=== PATIENT | male | born 1960 | race Two or more races ===

== ENCOUNTER 2019-09-11 21:54 | Inpatient (IN) | payer MEDICARE, MEDICAID ==
[~2019-09-11] VITALS: Ht 165.1 cm; Wt 62.6 kg
[2019-09-11] MEDS ORDERED: NITROGLYCERIN 50MG PREMIX 250 ML IV ONE (22:16)
[2019-09-11] MEDS ORDERED: AZITHROMYCIN 500 MG in DEXT 5% WATER 250 ML IV SCH (22:45)
[2019-09-11] MEDS ORDERED: CEFTRIAXONE 1 G PREMIX 50 ML IV ONE (22:45)
[2019-09-11 23:27] LABS: HEMATOCRIT. 38.6 % (42.0-52.0); HEMOGLOBIN. 12.7 g/dL (14.0-18.0); LYMPHOCYTES % 21.2 % (20.0-50.0); MEAN CORPUSCULAR VOLUME 88.3 fL (80.0-94.0); MEAN PLATELET VOLUME 8.7 fl (7.4-10.4); MONOCYTES % 6.4 % (2.0-8.0); NEUTROPHILS % 71.4 % (40.0-76.0); PLATELET 438 x1000/uL (130-400); RED BLOOD CELL COUNT 4.36 mill/uL (4.7-6.1); RED CELL DISTRIBUTION WIDTH 14.3 % (11.6-14.6)
[2019-09-11 23:33] LABS: CHLORIDE 101 mEq/L (98-107)
[2019-09-12 05:36] LABS: BG BASE EXCESS -8.7 mmol/L (-2.0-2.0); BG BILEVEL POS AIRWAY PRESSURE 15/5; BG CARBOXYHEMOGLOBIN 0.2 % (0.5-1.5); BG DEOXYHEMOGLOBIN 0.6 % (0.0-5.0); BG FRACTION INSPIRED OXYGEN 100; BG HCO3 ACT 16.7 mmol/L (22.0-26.0); BG METHEMOGLOBIN 0.1 % (0.0-1.5); BG OXYGEN SATURATION 99.4 % (92.0-98.5); BG OXYHEMOGLOBIN 99.1 % (94.0-97.0); BG PCO2 34.5 mmHg (35.0-45.0); BG PH 7.304 (7.350-7.450); BG PO2 400.7 mmHg (75.0-100.0); BG SAMPLE SITE RIGHT RADIAL; BG TOTAL HEMOGLOBIN 9.9 g/dL (12.0-18.0); BG VENT MODE MASK - BIPAP
[2019-09-12 06:02] LABS: CHLORIDE 104 mEq/L (98-107)
[2019-09-12] MEDS ORDERED: DOCUSATE SODIUM 100MG CAPSULE PO PRN (06:15)
[2019-09-12] MEDS ORDERED: MAGNESIUM/ALUMINUM HYDROXIDE/SIMETHICONE 30ML UDC PO PRN (06:15)
[2019-09-12] MEDS ORDERED: ACETAMINOPHEN 325MG TABLET PO PRN (06:15)
[2019-09-12] MEDS ORDERED: GUAIFENESIN 200MG/10ML SUGAR FREE UDC PO PRN (06:15)
[2019-09-12] MEDS ORDERED: ACETAMINOPHEN 650MG/20.3ML UDC GT PRN (06:15)
[2019-09-12] MEDS ORDERED: CLONIDINE 0.1MG TABLET PO PRN (06:15)
[2019-09-12 06:23] LABS: BASOPHILS % 0.5 % (0.0-2.0); HEMATOCRIT. 28.7 % (42.0-52.0); HEMOGLOBIN. 9.5 g/dL (14.0-18.0); LYMPHOCYTES % 20.3 % (20.0-50.0); MEAN CORPUSCULAR HEMOGLOBIN 29.1 pg (28.0-32.0); MEAN PLATELET VOLUME 8.4 fl (7.4-10.4); MONOCYTES % 14.4 % (2.0-8.0); NEUTROPHILS % 64.8 % (40.0-76.0); PLATELET 340 x1000/uL (130-400); RED BLOOD CELL COUNT 3.27 mill/uL (4.7-6.1); RED CELL DISTRIBUTION WIDTH 14.5 % (11.6-14.6)
[2019-09-12] MEDS: INSULIN LISPRO 100 UNITS/ML SUBCUT SCH ×3 (08:20→18:20)
[2019-09-12] MEDS: SODIUM CHLORIDE 0.9% INJ 3ML FLUSH IVF SCH (08:48)
[2019-09-12] MEDS: BLOOD SUGAR DIAGNOSTIC STRIP TEST SCH ×3 (08:49→18:46)
[2019-09-12] MEDS ORDERED: FUROSEMIDE 40MG/4ML VIAL IV SCH (09:00)
[2019-09-12 09:24] LABS: HEMOGLOBIN. 10.1 g/dL (14.0-18.0); MEAN CORPUSCULAR HEMOGLOBIN 29.3 pg (28.0-32.0); MEAN CORPUSCULAR VOLUME 87.4 fL (80.0-94.0); MEAN PLATELET VOLUME 8.5 fl (7.4-10.4); PLATELET 325 x1000/uL (130-400); RED BLOOD CELL COUNT 3.43 mill/uL (4.7-6.1); RED CELL DISTRIBUTION WIDTH 14.2 % (11.6-14.6)
[2019-09-12 10:35] LABS: PLATELET ESTIMATE NORMAL
[2019-09-12] MEDS ORDERED: NITROGLYCERIN 0.1MG/HR PATCH TOP NR (11:45)
[2019-09-12 13:05] LABS: TOTAL IRON BINDING CAPACITY 195 ug/dL (250-450)
[2019-09-12] MEDS: HYDRALAZINE HCL 50MG TABLET PO SCH ×2 (14:04→22:30)
[2019-09-12 14:20] LABS: FOLIC ACID (FOLATE) SERUM 10.8 ng/mL (>5.38)
[2019-09-12] MEDS ORDERED: NITROGLYCERIN 50MG PREMIX 250 ML IV ONE (14:30)
[2019-09-12 15:39] LABS: LDL CHOLESTEROL 87 mg/dL (5-100)
[2019-09-12 15:40] LABS: HDL CHOLESTEROL 67 mg/dL (40-59)
[2019-09-12 15:41] LABS: T4 FREE 0.87 ng/dL (0.76-1.46)
[2019-09-12 15:58] LABS: HEPATITIS B SURFACE ANTIGEN NEGATIVE
[2019-09-12 16:33] LABS: CREATINE KINASE MB FRACTION 5.4 ng/mL (0.5-3.6)
[2019-09-12] MEDS ORDERED: CLONIDINE 0.2MG TABLET PO NR (19:30)
[2019-09-12] MEDS ORDERED: NITROGLYCERIN 50MG PREMIX 250ML IV PRN (19:45)
[2019-09-12] MEDS: AMLODIPINE 10MG TABLET PO SCH (19:56)
[2019-09-12] MEDS ORDERED: HYDRALAZINE HCL 50MG TABLET PO SCH (21:00)
[2019-09-12] MEDS: METOPROLOL TARTRATE 50MG TABLET PO SCH (22:30)
[2019-09-12] MEDS: FUROSEMIDE 40MG/4ML VIAL IV SCH (22:42)
[2019-09-12 23:04] LABS: *AMPHETAMINES SCREEN URINE NEGATIVE (NEGATIVE); *BARBITURATES SCREEN URINE NEGATIVE (NEGATIVE); *BENZODIAZEPINES SCREEN URINE NEGATIVE (NEGATIVE); *COCAINE SCREEN URINE NEGATIVE (NEGATIVE); METHADONE URINE SCREEN NEGATIVE (NEGATIVE); OPIATES URINE SCREEN NEGATIVE (NEGATIVE)
[2019-09-12 23:05] LABS: CANNABINOID URINE SCREEN NEGATIVE (NEGATIVE); PHENCYCLIDINE URINE SCREEN NEGATIVE (NEGATIVE)
[2019-09-12 23:58] LABS: BASOPHILS % 0.9 % (0.0-2.0); HEMATOCRIT. 30.8 % (42.0-52.0); HEMOGLOBIN. 10.1 g/dL (14.0-18.0); LYMPHOCYTES % 7.4 % (20.0-50.0); MEAN CORPUSCULAR HEMOGLOBIN 28.9 pg (28.0-32.0); MEAN CORPUSCULAR VOLUME 88.2 fL (80.0-94.0); MEAN PLATELET VOLUME 8.2 fl (7.4-10.4); MONOCYTES % 7.5 % (2.0-8.0); NEUTROPHILS % 84.2 % (40.0-76.0); PLATELET 332 x1000/uL (130-400); RED BLOOD CELL COUNT 3.49 mill/uL (4.7-6.1)
[2019-09-13] VITALS (29 sets, daily range): BP systolic 94–157; BP diastolic 33–86
[2019-09-13 00:01] LABS: CHLORIDE 103 mEq/L (98-107)
[2019-09-13 00:10] LABS: CREATINE KINASE 135 IU/L (39-308)
[2019-09-13 06:14] LABS: BASOPHILS % 0.8 % (0.0-2.0); HEMATOCRIT. 28.5 % (42.0-52.0); HEMOGLOBIN. 9.4 g/dL (14.0-18.0); LYMPHOCYTES % 10.8 % (20.0-50.0); MEAN CORPUSCULAR HEMOGLOBIN 29.1 pg (28.0-32.0); MEAN CORPUSCULAR VOLUME 87.7 fL (80.0-94.0); MEAN PLATELET VOLUME 8.4 fl (7.4-10.4); MONOCYTES % 8.9 % (2.0-8.0); NEUTROPHILS % 79.5 % (40.0-76.0); PLATELET 294 x1000/uL (130-400); RED BLOOD CELL COUNT 3.25 mill/uL (4.7-6.1)
[2019-09-13] MEDS: METOPROLOL TARTRATE 50MG TABLET PO SCH ×3 (06:23→21:42)
[2019-09-13] MEDS: HYDRALAZINE HCL 50MG TABLET PO SCH (06:23)
[2019-09-13 06:30] LABS: PHOSPHORUS 6.6 mg/dL (2.5-4.9)
[2019-09-13] MEDS: BLOOD SUGAR DIAGNOSTIC STRIP TEST SCH ×4 (06:43→21:40)
[2019-09-13] MEDS: SODIUM CHLORIDE 0.9% INJ 3ML FLUSH IVF SCH ×3 (06:43→21:41)
[2019-09-13] MEDS: INSULIN LISPRO 100 UNITS/ML SUBCUT SCH ×4 (06:43→21:00)
[2019-09-13] MEDS: FUROSEMIDE 40MG/4ML VIAL IV SCH (08:09)
[2019-09-13] MEDS: AMLODIPINE 10MG TABLET PO SCH (09:00)
[2019-09-13] MEDS ORDERED: NITROGLYCERIN 0.1MG/HR PATCH TOP SCH (09:00)
[2019-09-13] MEDS ORDERED: CEFTRIAXONE 1 G PREMIX 50 ML IV SCH ×2 (13:00)
[2019-09-13 13:38] LABS: BG BASE EXCESS -9.5 mmol/L (-2.0-2.0); BG CARBOXYHEMOGLOBIN 0.3 % (0.5-1.5); BG DEOXYHEMOGLOBIN 6.7 % (0.0-5.0); BG FRACTION INSPIRED OXYGEN 30; BG HCO3 ACT 16.8 mmol/L (22.0-26.0); BG METHEMOGLOBIN 0.3 % (0.0-1.5); BG OXYGEN SATURATION 93.3 % (92.0-98.5); BG OXYHEMOGLOBIN 92.7 % (94.0-97.0); BG PCO2 38.2 mmHg (35.0-45.0); BG PH 7.262 (7.350-7.450); BG PO2 68.4 mmHg (75.0-100.0); BG SAMPLE SITE RIGHT RADIAL; BG TOTAL HEMOGLOBIN 10.3 g/dL (12.0-18.0); BG VENT MODE NASAL CANNULA
[2019-09-13] MEDS: AZITHROMYCIN 500 MG TABLET PO SCH (13:59)
[2019-09-13] MEDS: SEVELAMER CARBONATE 800 MG TABLET PO SCH (17:22)
[2019-09-13 18:11] LABS: PARTIAL THROMBOPLASTIN TIME 38.7 sec (23.4-31.0); PROTHROMBIN TIME 10.4 sec (9.6-11.0)
[2019-09-13] MEDS ORDERED: CEFTRIAXONE 1,000 MG in DEXTROSE 5% WATER 50 ML IV SCH (23:00)
[2019-09-14] VITALS: BP 175/89
[2019-09-14] MEDS ORDERED: CEFTRIAXONE 1,000 MG in DEXTROSE 5% WATER 50 ML IV SCH (01:00)
[2019-09-14 04:00] VITALS: BP 185/88
[2019-09-14] MEDS: SODIUM CHLORIDE 0.9% INJ 3ML FLUSH IVF SCH ×3 (06:29→22:07)
[2019-09-14] MEDS: METOPROLOL TARTRATE 50MG TABLET PO SCH ×3 (06:30→22:07)
[2019-09-14] MEDS: BLOOD SUGAR DIAGNOSTIC STRIP TEST SCH ×4 (07:39→21:43)
[2019-09-14 08:00] VITALS: BP 180/90
[2019-09-14 08:00] LABS: CHLORIDE 103 mEq/L (98-107)
[2019-09-14] MEDS: INSULIN LISPRO 100 UNITS/ML SUBCUT SCH ×4 (08:10→22:10)
[2019-09-14 08:12] LABS: PHOSPHORUS 6.2 mg/dL (2.5-4.9)
[2019-09-14 08:19] LABS: BASOPHILS % 0.4 % (0.0-2.0); HEMOGLOBIN. 10.8 g/dL (14.0-18.0); LYMPHOCYTES % 11.5 % (20.0-50.0); MEAN CORPUSCULAR HEMOGLOBIN 29.2 pg (28.0-32.0); MEAN CORPUSCULAR VOLUME 87.4 fL (80.0-94.0); MEAN PLATELET VOLUME 9.2 fl (7.4-10.4); MONOCYTES % 9.6 % (2.0-8.0); NEUTROPHILS % 78.5 % (40.0-76.0); PLATELET 351 x1000/uL (130-400); RED CELL DISTRIBUTION WIDTH 14.1 % (11.6-14.6)
[2019-09-14 08:33] LABS: HEMATOCRIT. 32.3 % (42.0-52.0)
[2019-09-14] MEDS: SEVELAMER CARBONATE 800 MG TABLET PO SCH ×3 (08:38→17:28)
[2019-09-14] MEDS: AMLODIPINE 10MG TABLET PO SCH ×2 (08:38→17:28)
[2019-09-14] MEDS: AZITHROMYCIN 500 MG TABLET PO SCH (08:39)
[2019-09-14] MEDS ORDERED: SODIUM BICARBONATE 8.4% 1 MEQ/ML 50ML SYR IV NR ×2 (10:15→11:00)
[2019-09-14] MEDS ORDERED: SODIUM POLYSTYRENE SULFONATE 15 G/60 ML BOT PO NR (10:30)
[2019-09-14 10:50] LABS: BG BASE EXCESS -12.2 mmol/L (-2.0-2.0); BG CARBOXYHEMOGLOBIN 0.3 % (0.5-1.5); BG DEOXYHEMOGLOBIN 11.3 % (0.0-5.0); BG HCO3 ACT 13.6 mmol/L (22.0-26.0); BG METHEMOGLOBIN 0.1 % (0.0-1.5); BG OXYGEN SATURATION 88.7 % (92.0-98.5); BG OXYHEMOGLOBIN 88.3 % (94.0-97.0); BG PCO2 31.1 mmHg (35.0-45.0); BG PO2 62.1 mmHg (75.0-100.0); BG SAMPLE SITE RIGHT RADIAL; BG TOTAL HEMOGLOBIN 12.3 g/dL (12.0-18.0); BG VENT MODE NASAL CANNULA
[2019-09-14] MEDS: CITRIC ACID/SODIUM CITRATE SOLN 30ML UDC PO SCH ×3 (11:23→17:28)
[2019-09-14 13:06] LABS: A/G RATIO 0.8 (0.7-1.7); ALBUMIN 2.3 g/dL (2.9-4.4); ALPHA-1-GLOBULIN 0.3 g/dL (0.0-0.4); ALPHA-2-GLOBULIN 0.7 g/dL (0.4-1.0); BETA GLOBULIN 0.8 g/dL (0.7-1.3); GAMMA GLOBULINS 1.2 g/dL (0.4-1.8); IMMUNOGLOBULIN A 337 mg/dL (90-386); IMMUNOGLOBULIN G 1215 mg/dL (603-1613); IMMUNOGLOBULIN M 74 mg/dL (20-172); M-SPIKE Not Observed g/dL (Not Observed); TOTAL PROTEIN SERUM 5.3 g/dL (6.0-8.5)
[2019-09-14] MEDS: HYDRALAZINE HCL 50MG TABLET PO SCH ×2 (13:48→22:06)
[2019-09-14 20:00] VITALS: BP 182/86
[2019-09-14] MEDS: CEFTRIAXONE 1 G PREMIX 50 ML IV SCH (22:54)
[2019-09-15] VITALS: BP 146/69
[2019-09-15 04:00] VITALS: BP 165/82
[2019-09-15] MEDS: SODIUM CHLORIDE 0.9% INJ 3ML FLUSH IVF SCH ×3 (06:59→22:09)
[2019-09-15] MEDS: HYDRALAZINE HCL 50MG TABLET PO SCH (07:05)
[2019-09-15] MEDS: METOPROLOL TARTRATE 50MG TABLET PO SCH ×3 (07:05→22:10)
[2019-09-15 07:15] LABS: CHLORIDE 106 mEq/L (98-107)
[2019-09-15 07:17] LABS: BASOPHILS % 0.4 % (0.0-2.0); HEMATOCRIT. 32.9 % (42.0-52.0); LYMPHOCYTES % 15.2 % (20.0-50.0); MEAN CORPUSCULAR VOLUME 86.6 fL (80.0-94.0); MONOCYTES % 11.9 % (2.0-8.0); NEUTROPHILS % 72.5 % (40.0-76.0); PLATELET 274 x1000/uL (130-400); RED BLOOD CELL COUNT 3.81 mill/uL (4.7-6.1); RED CELL DISTRIBUTION WIDTH 14.2 % (11.6-14.6)
[2019-09-15 07:23] LABS: PHOSPHORUS 5.7 mg/dL (2.5-4.9)
[2019-09-15] MEDS: BLOOD SUGAR DIAGNOSTIC STRIP TEST SCH ×4 (07:36→21:01)
[2019-09-15] MEDS: INSULIN LISPRO 100 UNITS/ML SUBCUT SCH ×4 (08:10→21:00)
[2019-09-15] MEDS: AZITHROMYCIN 500 MG TABLET PO SCH (08:59)
[2019-09-15] MEDS: SEVELAMER CARBONATE 800 MG TABLET PO SCH ×3 (08:59→18:00)
[2019-09-15] MEDS: CITRIC ACID/SODIUM CITRATE SOLN 30ML UDC PO SCH ×2 (08:59→18:00)
[2019-09-15 09:10] LABS: GLOMERULAR BASEMENT MEMB AB 3 units (0-20)
[2019-09-15] MEDS ORDERED: ALBUMIN HUMAN 25GM/100ML (25%) IV NR (11:00)
[2019-09-15 12:00] VITALS: BP 149/73
[2019-09-15] MEDS: HYDRALAZINE HCL 100MG TABLET PO SCH ×2 (12:46→22:10)
[2019-09-15 13:06] LABS: ANTI-MYELOPEROXIDASE AB < 9.0 U/mL (0.0-9.0); ANTI-PROTEINASE 3 ABS < 3.5 U/mL (0.0-3.5)
[2019-09-15 15:09] LABS: ATYPICAL P-ANCA <1:20 titer (Neg:<1:20); CYTOPLASMIC C-ANCA <1:20 titer (Neg:<1:20); PERINUCLEAR P-ANCA <1:20 titer (Neg:<1:20)
[2019-09-15 16:00] VITALS: BP 149/65
[2019-09-15] MEDS ORDERED: AMLO10TA80 PO (17:48)
[2019-09-15] MEDS ORDERED: SEVE800T8 PO (17:48)
[2019-09-15] MEDS ORDERED: CITR473S PO (17:48)
[2019-09-15] MEDS ORDERED: METO-539 PO (17:48)
[2019-09-15] MEDS: CLONIDINE 0.1MG TABLET PO SCH (18:00)
[2019-09-15 20:00] VITALS: BP 155/75
[2019-09-15] MEDS: CEFTRIAXONE 1 G PREMIX 50 ML IV SCH (22:10)
[2019-09-16] VITALS: BP 164/70
[2019-09-16 04:00] VITALS: BP 166/75
[2019-09-16] MEDS: SODIUM CHLORIDE 0.9% INJ 3ML FLUSH IVF SCH ×3 (05:24→22:23)
[2019-09-16] MEDS: HYDRALAZINE HCL 100MG TABLET PO SCH ×3 (05:24→22:24)
[2019-09-16] MEDS: METOPROLOL TARTRATE 50MG TABLET PO SCH ×3 (05:24→22:23)
[2019-09-16] MEDS: BLOOD SUGAR DIAGNOSTIC STRIP TEST SCH ×4 (06:45→21:00)
[2019-09-16 08:00] VITALS: BP 165/70
[2019-09-16] MEDS: INSULIN LISPRO 100 UNITS/ML SUBCUT SCH ×4 (08:10→21:00)
[2019-09-16 08:53] LABS: BASOPHILS % 0.5 % (0.0-2.0); HEMATOCRIT. 32.6 % (42.0-52.0); HEMOGLOBIN. 10.9 g/dL (14.0-18.0); LYMPHOCYTES % 12.1 % (20.0-50.0); MEAN CORPUSCULAR HEMOGLOBIN 28.8 pg (28.0-32.0); MEAN CORPUSCULAR VOLUME 86.2 fL (80.0-94.0); MEAN PLATELET VOLUME 9.8 fl (7.4-10.4); MONOCYTES % 8.4 % (2.0-8.0); PLATELET 252 x1000/uL (130-400); RED BLOOD CELL COUNT 3.79 mill/uL (4.7-6.1); RED CELL DISTRIBUTION WIDTH 14.3 % (11.6-14.6)
[2019-09-16 09:17] LABS: PHOSPHORUS 4.3 mg/dL (2.5-4.9)
[2019-09-16] MEDS: CITRIC ACID/SODIUM CITRATE SOLN 30ML UDC PO SCH ×2 (10:49→17:45)
[2019-09-16] MEDS: SEVELAMER CARBONATE 800 MG TABLET PO SCH ×3 (10:50→17:48)
[2019-09-16] MEDS: CLONIDINE 0.1MG TABLET PO SCH ×2 (10:50→17:46)
[2019-09-16] MEDS: AMLODIPINE 10MG TABLET PO SCH (10:51)
[2019-09-16] MEDS: AZITHROMYCIN 500 MG TABLET PO SCH (10:51)
[2019-09-16 12:10] VITALS: BP 162/74
[2019-09-16 16:57] VITALS: BP 160/80
[2019-09-16 20:00] VITALS: BP 167/81
[2019-09-16] MEDS: CEFTRIAXONE 1 G PREMIX 50 ML IV SCH (22:29)
[2019-09-17] VITALS: BP 170/82
[2019-09-17 04:00] VITALS: BP 158/77
[2019-09-17] MEDS: METOPROLOL TARTRATE 50MG TABLET PO SCH ×3 (06:02→22:50)
[2019-09-17] MEDS: HYDRALAZINE HCL 100MG TABLET PO SCH ×3 (06:02→21:24)
[2019-09-17] MEDS: SODIUM CHLORIDE 0.9% INJ 3ML FLUSH IVF SCH ×3 (06:02→21:22)
[2019-09-17] MEDS: BLOOD SUGAR DIAGNOSTIC STRIP TEST SCH ×3 (06:22→21:22)
[2019-09-17 08:00] VITALS: BP 176/86
[2019-09-17] MEDS: INSULIN LISPRO 100 UNITS/ML SUBCUT SCH ×2 (08:10→21:00)
[2019-09-17 08:14] LABS: BASOPHILS % 0.4 % (0.0-2.0); HEMOGLOBIN. 10.4 g/dL (14.0-18.0); LYMPHOCYTES % 8.6 % (20.0-50.0); MEAN CORPUSCULAR HEMOGLOBIN 28.9 pg (28.0-32.0); MEAN PLATELET VOLUME 9.4 fl (7.4-10.4); MONOCYTES % 8.4 % (2.0-8.0); NEUTROPHILS % 82.6 % (40.0-76.0); PLATELET 244 x1000/uL (130-400); RED CELL DISTRIBUTION WIDTH 14.1 % (11.6-14.6)
[2019-09-17 08:22] LABS: PHOSPHORUS 3.9 mg/dL (2.5-4.9)
[2019-09-17] MEDS: TAMSULOSIN HCL 0.4MG SR CAPSULE PO SCH ×2 (09:56→09:59)
[2019-09-17] MEDS: AZITHROMYCIN 500 MG TABLET PO SCH (09:56)
[2019-09-17] MEDS: SEVELAMER CARBONATE 800 MG TABLET PO SCH ×3 (09:57→18:50)
[2019-09-17] MEDS: AMLODIPINE 10MG TABLET PO SCH (09:58)
[2019-09-17] MEDS: CITRIC ACID/SODIUM CITRATE SOLN 30ML UDC PO SCH ×2 (09:58→18:49)
[2019-09-17] MEDS: CLONIDINE 0.1MG TABLET PO SCH ×3 (09:58→21:23)
[2019-09-17 12:37] VITALS: BP 162/75
[2019-09-17 16:28] VITALS: BP 139/64
[2019-09-17] MEDS ORDERED: POTASSIUM CHLORIDE INJ 40 MEQ in DEXT 5% WATER 250 ML IV SCH (17:00)
[2019-09-17] MEDS ORDERED: BISACODYL 10MG SUPP PR PRN (18:00)
[2019-09-17 20:00] VITALS: BP 131/63
[2019-09-17] MEDS: CEFTRIAXONE 1 G PREMIX 50 ML IV SCH (22:50)
[2019-09-18] VITALS (7 sets, daily range): BP systolic 126–183; BP diastolic 61–87
[2019-09-18] MEDS: SODIUM CHLORIDE 0.9% INJ 3ML FLUSH IVF SCH ×3 (05:49→21:00)
[2019-09-18] MEDS: HYDRALAZINE HCL 100MG TABLET PO SCH ×3 (05:52→22:00)
[2019-09-18] MEDS: CLONIDINE 0.1MG TABLET PO SCH ×3 (06:54→22:00)
[2019-09-18] MEDS: METOPROLOL TARTRATE 50MG TABLET PO SCH ×3 (06:54→21:01)
[2019-09-18] MEDS: BLOOD SUGAR DIAGNOSTIC STRIP TEST SCH ×4 (06:54→21:00)
[2019-09-18] MEDS: SEVELAMER CARBONATE 800 MG TABLET PO SCH ×3 (08:10→18:10)
[2019-09-18] MEDS: INSULIN LISPRO 100 UNITS/ML SUBCUT SCH ×4 (08:10→21:00)
[2019-09-18] MEDS: CITRIC ACID/SODIUM CITRATE SOLN 30ML UDC PO SCH ×3 (09:00→16:12)
[2019-09-18] MEDS: TAMSULOSIN HCL 0.4MG SR CAPSULE PO SCH (09:00)
[2019-09-18] MEDS: AZITHROMYCIN 500 MG TABLET PO SCH (10:14)
[2019-09-18] MEDS: AMLODIPINE 10MG TABLET PO SCH (10:14)
[2019-09-18 11:00] LABS: BASOPHILS % 0.3 % (0.0-2.0); EOSINOPHILS % 0.1 % (0.0-5.0); HEMATOCRIT. 30.1 % (42.0-52.0); MEAN CORPUSCULAR HEMOGLOBIN 28.6 pg (28.0-32.0); MEAN CORPUSCULAR VOLUME 86.2 fL (80.0-94.0); MEAN PLATELET VOLUME 9.3 fl (7.4-10.4); MONOCYTES % 6.4 % (2.0-8.0); NEUTROPHILS % 84.2 % (40.0-76.0); PLATELET 213 x1000/uL (130-400); RED BLOOD CELL COUNT 3.49 mill/uL (4.7-6.1)
[2019-09-18 11:26] LABS: PHOSPHORUS 4.3 mg/dL (2.5-4.9)
[2019-09-18] MEDS: CEFTRIAXONE 1 G PREMIX 50 ML IV SCH (22:27)
[2019-09-19] VITALS (25 sets, daily range): BP systolic 96–166; BP diastolic 29–95
[2019-09-19] MEDS: CLONIDINE 0.1MG TABLET PO SCH ×3 (06:00→22:00)
[2019-09-19] MEDS: SODIUM CHLORIDE 0.9% INJ 3ML FLUSH IVF SCH ×3 (06:00→21:50)
[2019-09-19] MEDS: HYDRALAZINE HCL 100MG TABLET PO SCH ×3 (06:00→22:00)
[2019-09-19] MEDS: METOPROLOL TARTRATE 50MG TABLET PO SCH ×3 (06:00→22:00)
[2019-09-19 06:35] LABS: HEMATOCRIT. 26.5 % (42.0-52.0); HEMOGLOBIN. 9.1 g/dL (14.0-18.0); MEAN CORPUSCULAR HEMOGLOBIN 29.1 pg (28.0-32.0); MEAN PLATELET VOLUME 9.1 fl (7.4-10.4); PLATELET 192 x1000/uL (130-400); RED BLOOD CELL COUNT 3.11 mill/uL (4.7-6.1); RED CELL DISTRIBUTION WIDTH 14.2 % (11.6-14.6)
[2019-09-19] MEDS: BLOOD SUGAR DIAGNOSTIC STRIP TEST SCH ×3 (06:52→21:22)
[2019-09-19 07:00] LABS: PHOSPHORUS 4.6 mg/dL (2.5-4.9)
[2019-09-19] MEDS: INSULIN LISPRO 100 UNITS/ML SUBCUT SCH ×3 (08:10→21:00)
[2019-09-19] MEDS: CITRIC ACID/SODIUM CITRATE SOLN 30ML UDC PO SCH (08:47)
[2019-09-19] MEDS: FUROSEMIDE 40MG/4ML VIAL IVP SCH ×2 (08:48→21:20)
[2019-09-19] MEDS: TAMSULOSIN HCL 0.4MG SR CAPSULE PO SCH (08:51)
[2019-09-19] MEDS: AZITHROMYCIN 500 MG TABLET PO SCH (08:51)
[2019-09-19] MEDS: AMLODIPINE 10MG TABLET PO SCH (08:51)
[2019-09-19] MEDS: SEVELAMER CARBONATE 800 MG TABLET PO SCH ×2 (08:52→13:34)
[2019-09-19] MEDS ORDERED: POTASSIUM CHLORIDE INJ 40 MEQ in DEXT 5% WATER 250 ML IV ONE (09:00)
[2019-09-19 09:56] LABS: PLATELET ESTIMATE NORMAL
[2019-09-19] MEDS ORDERED: MEROPENEM 500 MG in SODIUM CHLORIDE 0.9% 50 ML IV SCH (11:45)
[2019-09-19] MEDS: ENOXAPARIN 30MG/0.3ML SYR SUBCUT SCH (13:00)
[2019-09-19] MEDS: GUAIFENESIN 600MG ER TABLET PO SCH ×2 (13:32→21:20)
[2019-09-19] MEDS: ALBUTEROL 6.7GM HFA INHALER ORI SCH ×2 (14:45→19:00)
[2019-09-19] MEDS: MEROPENEM 500MG in NORMAL SALINE 50ML IV SCH (16:30)
[2019-09-19] MEDS: PROPOFOL 10MG/ML 100ML 100 ML IV PRN ×2 (19:11→22:02)
[2019-09-19] MEDS ORDERED: DOPAMINE HCL 400 MG in DEXT 5% WATER 240 ML IV PRN (19:30)
[2019-09-19 19:52] LABS: BG BASE EXCESS -0.6 mmol/L (-2.0-2.0); BG CARBOXYHEMOGLOBIN 0.3 % (0.5-1.5); BG FRACTION INSPIRED OXYGEN 100; BG HCO3 ACT 24.2 mmol/L (22.0-26.0); BG METHEMOGLOBIN 0.2 % (0.0-1.5); BG OXYHEMOGLOBIN 92.5 % (94.0-97.0); BG PCO2 40.5 mmHg (35.0-45.0); BG PH 7.395 (7.350-7.450); BG PO2 67.8 mmHg (75.0-100.0); BG SAMPLE SITE RIGHT BRACHIAL; BG TIDAL VOLUME(mL) 500 mL; BG TOTAL HEMOGLOBIN 10.3 g/dL (12.0-18.0); BG VENT MODE VENT - A/C; BG VENT RATE 18 set
[2019-09-19] MEDS ORDERED: DOPAMINE 400MG/250ML PREMIX 250 ML IV PRN (20:03)
[2019-09-19] MEDS: FENTANYL CITRATE/PF 2,500 MCG in SODIUM CHLORIDE 0.9% 200 ML IV PRN (21:22)
[2019-09-20] VITALS (86 sets, daily range): BP systolic 79–162; BP diastolic 50–85
[2019-09-20] MEDS: ALBUTEROL 6.7GM HFA INHALER ORI SCH ×5 (02:20→20:15)
[2019-09-20] MEDS: PROPOFOL 10MG/ML 100ML 100 ML IV PRN (04:50)
[2019-09-20 04:53] LABS: BASOPHILS % 0.4 % (0.0-2.0); EOSINOPHILS % 1.3 % (0.0-5.0); HEMATOCRIT. 26.3 % (42.0-52.0); HEMOGLOBIN. 8.9 g/dL (14.0-18.0); LYMPHOCYTES % 13.6 % (20.0-50.0); MEAN CORPUSCULAR HEMOGLOBIN 28.8 pg (28.0-32.0); MEAN CORPUSCULAR VOLUME 85.4 fL (80.0-94.0); MEAN PLATELET VOLUME 9.8 fl (7.4-10.4); MONOCYTES % 4.9 % (2.0-8.0); NEUTROPHILS % 79.8 % (40.0-76.0); PLATELET 175 x1000/uL (130-400); RED BLOOD CELL COUNT 3.08 mill/uL (4.7-6.1); RED CELL DISTRIBUTION WIDTH 14.2 % (11.6-14.6)
[2019-09-20] MEDS: BLOOD SUGAR DIAGNOSTIC STRIP TEST SCH ×4 (05:08→21:00)
[2019-09-20] MEDS: INSULIN LISPRO 100 UNITS/ML SUBCUT SCH ×4 (05:09→21:00)
[2019-09-20 05:11] LABS: PHOSPHORUS 3.6 mg/dL (2.5-4.9)
[2019-09-20] MEDS: HYDRALAZINE HCL 100MG TABLET PO SCH ×3 (06:00→21:09)
[2019-09-20] MEDS: METOPROLOL TARTRATE 50MG TABLET PO SCH ×3 (06:00→21:09)
[2019-09-20] MEDS: CLONIDINE 0.1MG TABLET PO SCH ×3 (06:00→21:09)
[2019-09-20] MEDS: SODIUM CHLORIDE 0.9% INJ 3ML FLUSH IVF SCH ×3 (06:03→21:08)
[2019-09-20] MEDS: SEVELAMER CARBONATE 800 MG TABLET PO SCH ×3 (06:05→16:57)
[2019-09-20] MEDS: CITRIC ACID/SODIUM CITRATE SOLN 30ML UDC PO SCH ×2 (08:33→16:57)
[2019-09-20] MEDS: GUAIFENESIN 600MG ER TABLET PO SCH ×2 (08:34→21:08)
[2019-09-20] MEDS: AZITHROMYCIN 500 MG TABLET PO SCH (08:34)
[2019-09-20] MEDS: FUROSEMIDE 40MG/4ML VIAL IVP SCH ×2 (08:34→21:08)
[2019-09-20] MEDS: AMLODIPINE 10MG TABLET PO SCH (08:34)
[2019-09-20] MEDS: ENOXAPARIN 30MG/0.3ML SYR SUBCUT SCH (08:34)
[2019-09-20] MEDS: TAMSULOSIN HCL 0.4MG SR CAPSULE PO SCH (08:34)
[2019-09-20 08:47] LABS: BG BASE EXCESS -0.2 mmol/L (-2.0-2.0); BG CARBOXYHEMOGLOBIN 0.3 % (0.5-1.5); BG DEOXYHEMOGLOBIN 0.6 % (0.0-5.0); BG FRACTION INSPIRED OXYGEN 100; BG HCO3 ACT 24.1 mmol/L (22.0-26.0); BG METHEMOGLOBIN 0.2 % (0.0-1.5); BG OXYGEN SATURATION 99.4 % (92.0-98.5); BG OXYHEMOGLOBIN 98.9 % (94.0-97.0); BG PCO2 37.6 mmHg (35.0-45.0); BG PH 7.424 (7.350-7.450); BG PO2 347.9 mmHg (75.0-100.0); BG SAMPLE SITE RIGHT RADIAL; BG TIDAL VOLUME(mL) 500 mL; BG TOTAL HEMOGLOBIN 9.5 g/dL (12.0-18.0); BG VENT MODE VENT - A/C; BG VENT RATE 16 set
[2019-09-20] MEDS ORDERED: LIDOCAINE HCL 1% 20ML VIAL (Pyxis) INJ ONE (14:05)
[2019-09-20] MEDS: MEROPENEM 500MG in NORMAL SALINE 50ML IV SCH (14:31)
[2019-09-21] VITALS (95 sets, daily range): BP systolic 94–138; BP diastolic 55–75
[2019-09-21] MEDS: ALBUTEROL 6.7GM HFA INHALER ORI SCH ×3 (01:39→13:05)
[2019-09-21] MEDS: DEXTROSE 50% WATER 50ML SYRINGE IV PRN (05:16)
[2019-09-21] MEDS: HYDRALAZINE HCL 100MG TABLET PO SCH ×3 (05:17→21:35)
[2019-09-21] MEDS: METOPROLOL TARTRATE 50MG TABLET PO SCH ×3 (05:17→21:36)
[2019-09-21] MEDS: CLONIDINE 0.1MG TABLET PO SCH ×3 (05:17→21:36)
[2019-09-21] MEDS: SODIUM CHLORIDE 0.9% INJ 3ML FLUSH IVF SCH ×3 (05:18→21:35)
[2019-09-21] MEDS: BLOOD SUGAR DIAGNOSTIC STRIP TEST SCH ×4 (05:18→21:00)
[2019-09-21] MEDS: INSULIN LISPRO 100 UNITS/ML SUBCUT SCH ×4 (05:18→21:00)
[2019-09-21 05:44] LABS: BASOPHILS % 0.5 % (0.0-2.0); EOSINOPHILS % 1.4 % (0.0-5.0); HEMATOCRIT. 29.7 % (42.0-52.0); HEMOGLOBIN. 9.9 g/dL (14.0-18.0); LYMPHOCYTES % 12.4 % (20.0-50.0); MEAN CORPUSCULAR HEMOGLOBIN 28.6 pg (28.0-32.0); MEAN CORPUSCULAR VOLUME 86.2 fL (80.0-94.0); MEAN PLATELET VOLUME 10.5 fl (7.4-10.4); MONOCYTES % 2.9 % (2.0-8.0); NEUTROPHILS % 82.8 % (40.0-76.0); PLATELET 184 x1000/uL (130-400); RED BLOOD CELL COUNT 3.45 mill/uL (4.7-6.1); RED CELL DISTRIBUTION WIDTH 14.1 % (11.6-14.6)
[2019-09-21 06:06] LABS: PHOSPHORUS 5.2 mg/dL (2.5-4.9)
[2019-09-21 07:08] LABS: BG BASE EXCESS 1.7 mmol/L (-2.0-2.0); BG CARBOXYHEMOGLOBIN 0.3 % (0.5-1.5); BG DEOXYHEMOGLOBIN 2.5 % (0.0-5.0); BG METHEMOGLOBIN 0.2 % (0.0-1.5); BG OXYGEN SATURATION 97.5 % (92.0-98.5); BG PCO2 39.7 mmHg (35.0-45.0); BG PH 7.434 (7.350-7.450); BG PO2 94.8 mmHg (75.0-100.0); BG SAMPLE SITE RIGHT RADIAL; BG TIDAL VOLUME(mL) 500 mL; BG TOTAL HEMOGLOBIN 10.9 g/dL (12.0-18.0); BG VENT MODE VENT - A/C; BG VENT RATE 16 set
[2019-09-21] MEDS: SEVELAMER CARBONATE 800 MG TABLET PO SCH ×3 (07:08→17:38)
[2019-09-21] MEDS: GUAIFENESIN 600MG ER TABLET PO SCH ×2 (08:33→21:32)
[2019-09-21] MEDS: CITRIC ACID/SODIUM CITRATE SOLN 30ML UDC PO SCH (08:33)
[2019-09-21] MEDS: FUROSEMIDE 40MG/4ML VIAL IVP SCH (08:33)
[2019-09-21] MEDS: AMLODIPINE 10MG TABLET PO SCH (08:34)
[2019-09-21] MEDS: ENOXAPARIN 30MG/0.3ML SYR SUBCUT SCH (08:34)
[2019-09-21] MEDS: TAMSULOSIN HCL 0.4MG SR CAPSULE PO SCH (08:34)
[2019-09-21] MEDS: MEROPENEM 500MG in NORMAL SALINE 50ML IV SCH (13:58)
[2019-09-21] MEDS: FENTANYL CITRATE/PF 2,500 MCG in SODIUM CHLORIDE 0.9% 200 ML IV PRN (18:55)
[2019-09-21] MEDS: METOCLOPRAMIDE HCL 10MG/2ML VIAL IV SCH (21:35)
[2019-09-22] VITALS (84 sets, daily range): BP systolic 52–154; BP diastolic 38–128
[2019-09-22 05:58] LABS: BASOPHILS % 0.5 % (0.0-2.0); EOSINOPHILS % 3.8 % (0.0-5.0); HEMATOCRIT. 27.7 % (42.0-52.0); HEMOGLOBIN. 9.3 g/dL (14.0-18.0); LYMPHOCYTES % 8.1 % (20.0-50.0); MEAN CORPUSCULAR HEMOGLOBIN 28.7 pg (28.0-32.0); MEAN CORPUSCULAR VOLUME 85.3 fL (80.0-94.0); MEAN PLATELET VOLUME 10.2 fl (7.4-10.4); MONOCYTES % 4.4 % (2.0-8.0); NEUTROPHILS % 83.2 % (40.0-76.0); PLATELET 216 x1000/uL (130-400); RED BLOOD CELL COUNT 3.25 mill/uL (4.7-6.1); RED CELL DISTRIBUTION WIDTH 14.1 % (11.6-14.6)
[2019-09-22] MEDS: SODIUM CHLORIDE 0.9% INJ 3ML FLUSH IVF SCH ×3 (06:00→22:00)
[2019-09-22] MEDS: METOCLOPRAMIDE HCL 10MG/2ML VIAL IV SCH ×3 (06:01→21:16)
[2019-09-22] MEDS: SEVELAMER CARBONATE 800 MG TABLET PO SCH ×3 (06:02→17:12)
[2019-09-22] MEDS: HYDRALAZINE HCL 100MG TABLET PO SCH ×3 (06:02→21:16)
[2019-09-22] MEDS: CLONIDINE 0.1MG TABLET PO SCH ×3 (06:02→21:17)
[2019-09-22] MEDS: INSULIN LISPRO 100 UNITS/ML SUBCUT SCH ×3 (06:03→21:00)
[2019-09-22] MEDS: BLOOD SUGAR DIAGNOSTIC STRIP TEST SCH ×3 (06:03→21:00)
[2019-09-22] MEDS: METOPROLOL TARTRATE 50MG TABLET PO SCH ×3 (06:03→21:18)
[2019-09-22] MEDS: CITRIC ACID/SODIUM CITRATE SOLN 30ML UDC PO SCH (08:08)
[2019-09-22] MEDS: GUAIFENESIN 600MG ER TABLET PO SCH ×2 (08:09→21:17)
[2019-09-22] MEDS: TAMSULOSIN HCL 0.4MG SR CAPSULE PO SCH (08:09)
[2019-09-22] MEDS: ENOXAPARIN 30MG/0.3ML SYR SUBCUT SCH (08:10)
[2019-09-22] MEDS: AMLODIPINE 10MG TABLET PO SCH (08:13)
[2019-09-22] MEDS ORDERED: FUROSEMIDE 40MG/4ML VIAL IVP SCH (09:00)
[2019-09-22 09:35] LABS: BG BASE EXCESS 0.1 mmol/L (-2.0-2.0); BG CARBOXYHEMOGLOBIN 0.3 % (0.5-1.5); BG DEOXYHEMOGLOBIN 3.5 % (0.0-5.0); BG FRACTION INSPIRED OXYGEN 40; BG HCO3 ACT 24.6 mmol/L (22.0-26.0); BG METHEMOGLOBIN 0.3 % (0.0-1.5); BG OXYGEN SATURATION 96.5 % (92.0-98.5); BG OXYHEMOGLOBIN 95.9 % (94.0-97.0); BG PH 7.417 (7.350-7.450); BG PO2 85.4 mmHg (75.0-100.0); BG PRESSURE SUPPORT 8; BG SAMPLE SITE RIGHT RADIAL; BG TOTAL HEMOGLOBIN 10.1 g/dL (12.0-18.0); BG VENT MODE VENT - CPAP
[2019-09-22] MEDS: MEROPENEM 500MG in NORMAL SALINE 50ML IV SCH (14:08)
[2019-09-22] MEDS ORDERED: INSULIN LISPRO 100 UNITS/ML SUBCUT SCH (18:00)
[2019-09-22] MEDS ORDERED: BLOOD SUGAR DIAGNOSTIC STRIP TEST SCH (18:00)
[2019-09-22] MEDS: ALBUTEROL 6.7GM HFA INHALER ORI SCH (21:00)
[2019-09-22] MEDS: FUROSEMIDE 40MG/4ML VIAL IVP SCH (21:16)
[2019-09-22] MEDS: FAMOTIDINE 20MG TABLET NG SCH (21:17)
[2019-09-23] VITALS (29 sets, daily range): BP systolic 100–141; BP diastolic 55–82
[2019-09-23] MEDS: ALBUTEROL 6.7GM HFA INHALER ORI SCH ×3 (02:10→21:10)
[2019-09-23] MEDS: METOCLOPRAMIDE HCL 10MG/2ML VIAL IV SCH ×3 (05:36→21:32)
[2019-09-23] MEDS: METOPROLOL TARTRATE 50MG TABLET PO SCH ×3 (05:37→21:29)
[2019-09-23] MEDS: HYDRALAZINE HCL 100MG TABLET PO SCH ×3 (05:38→21:27)
[2019-09-23] MEDS: CLONIDINE 0.1MG TABLET PO SCH ×3 (05:38→21:28)
[2019-09-23 05:45] LABS: BASOPHILS % 0.7 % (0.0-2.0); HEMATOCRIT. 29.1 % (42.0-52.0); HEMOGLOBIN. 9.8 g/dL (14.0-18.0); LYMPHOCYTES % 7.5 % (20.0-50.0); MEAN CORPUSCULAR HEMOGLOBIN 28.8 pg (28.0-32.0); MEAN CORPUSCULAR VOLUME 85.7 fL (80.0-94.0); MEAN PLATELET VOLUME 10.1 fl (7.4-10.4); MONOCYTES % 3.1 % (2.0-8.0); NEUTROPHILS % 84.7 % (40.0-76.0); PLATELET 242 x1000/uL (130-400); RED BLOOD CELL COUNT 3.39 mill/uL (4.7-6.1); RED CELL DISTRIBUTION WIDTH 14.1 % (11.6-14.6)
[2019-09-23 05:51] LABS: PHOSPHORUS 4.3 mg/dL (2.5-4.9)
[2019-09-23] MEDS: INSULIN LISPRO 100 UNITS/ML SUBCUT SCH ×4 (06:30→21:00)
[2019-09-23] MEDS: SODIUM CHLORIDE 0.9% INJ 3ML FLUSH IVF SCH ×3 (06:44→22:00)
[2019-09-23] MEDS: BLOOD SUGAR DIAGNOSTIC STRIP TEST SCH ×4 (06:44→21:30)
[2019-09-23] MEDS: CITRIC ACID/SODIUM CITRATE SOLN 30ML UDC PO SCH (08:11)
[2019-09-23] MEDS: FUROSEMIDE 40MG/4ML VIAL IVP SCH ×2 (08:11→21:25)
[2019-09-23] MEDS: ENOXAPARIN 30MG/0.3ML SYR SUBCUT SCH (08:12)
[2019-09-23] MEDS: SEVELAMER CARBONATE 800 MG TABLET PO SCH ×3 (08:13→17:09)
[2019-09-23] MEDS: TAMSULOSIN HCL 0.4MG SR CAPSULE PO SCH (08:13)
[2019-09-23] MEDS: AMLODIPINE 10MG TABLET PO SCH (08:13)
[2019-09-23] MEDS: GUAIFENESIN 600MG ER TABLET PO SCH ×2 (08:22→21:28)
[2019-09-23 09:08] LABS: BG CARBOXYHEMOGLOBIN 0.3 % (0.5-1.5); BG DEOXYHEMOGLOBIN 9.2 % (0.0-5.0); BG FRACTION INSPIRED OXYGEN 44; BG HCO3 ACT 29.9 mmol/L (22.0-26.0); BG METHEMOGLOBIN 0.1 % (0.0-1.5); BG OXYGEN SATURATION 90.8 % (92.0-98.5); BG OXYHEMOGLOBIN 90.4 % (94.0-97.0); BG PH 7.431 (7.350-7.450); BG PO2 58.5 mmHg (75.0-100.0); BG SAMPLE SITE RIGHT BRACHIAL; BG TOTAL HEMOGLOBIN 10.7 g/dL (12.0-18.0); BG VENT MODE NASAL CANNULA
[2019-09-23] MEDS ORDERED: SODIUM BICARBONATE 4% (2.4MEQ) 5ML VIAL IV ONE (12:57)
[2019-09-23] MEDS ORDERED: LIDOCAINE HCL 1% 20ML VIAL (Pyxis) INJ ONE (12:57)
[2019-09-23] MEDS: MEROPENEM 500MG in NORMAL SALINE 50ML IV SCH (16:02)
[2019-09-23] MEDS: FAMOTIDINE 20MG TABLET NG SCH (21:29)
[2019-09-24] VITALS (31 sets, daily range): BP systolic 88–131; BP diastolic 53–68
[2019-09-24] MEDS: ALBUTEROL 6.7GM HFA INHALER ORI SCH ×4 (00:48→21:12)
[2019-09-24 05:38] LABS: BASOPHILS % 0.3 % (0.0-2.0); EOSINOPHILS % 2.5 % (0.0-5.0); HEMATOCRIT. 34.2 % (42.0-52.0); HEMOGLOBIN. 11.5 g/dL (14.0-18.0); LYMPHOCYTES % 7.9 % (20.0-50.0); MEAN CORPUSCULAR VOLUME 86.2 fL (80.0-94.0); MEAN PLATELET VOLUME 9.7 fl (7.4-10.4); MONOCYTES % 4.4 % (2.0-8.0); NEUTROPHILS % 84.9 % (40.0-76.0); PLATELET 276 x1000/uL (130-400); RED BLOOD CELL COUNT 3.97 mill/uL (4.7-6.1); RED CELL DISTRIBUTION WIDTH 14.2 % (11.6-14.6)
[2019-09-24] MEDS: METOPROLOL TARTRATE 50MG TABLET PO SCH ×3 (06:09→21:28)
[2019-09-24] MEDS: HYDRALAZINE HCL 100MG TABLET PO SCH ×3 (06:10→21:27)
[2019-09-24] MEDS: CLONIDINE 0.1MG TABLET PO SCH ×3 (06:10→21:28)
[2019-09-24] MEDS: INSULIN LISPRO 100 UNITS/ML SUBCUT SCH ×4 (06:10→21:57)
[2019-09-24] MEDS: METOCLOPRAMIDE HCL 10MG/2ML VIAL IV SCH ×3 (06:11→21:48)
[2019-09-24] MEDS: BLOOD SUGAR DIAGNOSTIC STRIP TEST SCH ×4 (06:11→21:56)
[2019-09-24] MEDS: SODIUM CHLORIDE 0.9% INJ 3ML FLUSH IVF SCH ×3 (06:12→21:56)
[2019-09-24 06:17] LABS: PHOSPHORUS 4.9 mg/dL (2.5-4.9)
[2019-09-24] MEDS: FUROSEMIDE 40MG/4ML VIAL IVP SCH (08:28)
[2019-09-24] MEDS: GUAIFENESIN 600MG ER TABLET PO SCH ×2 (08:28→21:48)
[2019-09-24] MEDS: TAMSULOSIN HCL 0.4MG SR CAPSULE PO SCH (08:29)
[2019-09-24] MEDS: SEVELAMER CARBONATE 800 MG TABLET PO SCH ×3 (08:29→17:59)
[2019-09-24] MEDS: CITRIC ACID/SODIUM CITRATE SOLN 30ML UDC PO SCH (08:29)
[2019-09-24] MEDS: ENOXAPARIN 30MG/0.3ML SYR SUBCUT SCH (08:29)
[2019-09-24] MEDS: AMLODIPINE 10MG TABLET PO SCH (08:33)
[2019-09-24 09:46] LABS: BG BASE EXCESS 1.6 mmol/L (-2.0-2.0); BG CARBOXYHEMOGLOBIN 0.3 % (0.5-1.5); BG DEOXYHEMOGLOBIN 8.8 % (0.0-5.0); BG FRACTION INSPIRED OXYGEN 40; BG METHEMOGLOBIN 0.1 % (0.0-1.5); BG OXYGEN SATURATION 91.2 % (92.0-98.5); BG OXYHEMOGLOBIN 90.8 % (94.0-97.0); BG PCO2 40.4 mmHg (35.0-45.0); BG PH 7.427 (7.350-7.450); BG PO2 60.3 mmHg (75.0-100.0); BG SAMPLE SITE RIGHT BRACHIAL; BG TOTAL HEMOGLOBIN 11.7 g/dL (12.0-18.0); BG VENT MODE NASAL CANNULA
[2019-09-24] MEDS: FAMOTIDINE 20MG TABLET NG SCH (21:48)
[2019-09-25] VITALS (44 sets, daily range): BP systolic 101–138; BP diastolic 45–83
[2019-09-25] MEDS: ALBUTEROL 6.7GM HFA INHALER ORI SCH ×4 (00:49→20:00)
[2019-09-25 05:42] LABS: BASOPHILS % 0.6 % (0.0-2.0); EOSINOPHILS % 2.5 % (0.0-5.0); HEMATOCRIT. 30.6 % (42.0-52.0); HEMOGLOBIN. 10.4 g/dL (14.0-18.0); LYMPHOCYTES % 8.2 % (20.0-50.0); MEAN CORPUSCULAR HEMOGLOBIN 28.7 pg (28.0-32.0); MEAN CORPUSCULAR VOLUME 84.6 fL (80.0-94.0); MEAN PLATELET VOLUME 9.6 fl (7.4-10.4); MONOCYTES % 4.4 % (2.0-8.0); NEUTROPHILS % 84.3 % (40.0-76.0); PLATELET 270 x1000/uL (130-400); RED BLOOD CELL COUNT 3.62 mill/uL (4.7-6.1); RED CELL DISTRIBUTION WIDTH 14.3 % (11.6-14.6)
[2019-09-25] MEDS: BLOOD SUGAR DIAGNOSTIC STRIP TEST SCH ×4 (05:44→20:52)
[2019-09-25] MEDS: SODIUM CHLORIDE 0.9% INJ 3ML FLUSH IVF SCH ×3 (05:44→20:46)
[2019-09-25] MEDS: INSULIN LISPRO 100 UNITS/ML SUBCUT SCH ×3 (05:45→16:30)
[2019-09-25] MEDS: METOPROLOL TARTRATE 50MG TABLET PO SCH ×3 (05:47→20:52)
[2019-09-25] MEDS: CLONIDINE 0.1MG TABLET PO SCH (05:47)
[2019-09-25] MEDS: HYDRALAZINE HCL 100MG TABLET PO SCH (05:48)
[2019-09-25 05:53] LABS: PHOSPHORUS 4.8 mg/dL (2.5-4.9)
[2019-09-25] MEDS: SEVELAMER CARBONATE 800 MG TABLET PO SCH ×3 (06:10→17:35)
[2019-09-25] MEDS: TAMSULOSIN HCL 0.4MG SR CAPSULE PO SCH ×2 (09:00→09:07)
[2019-09-25] MEDS: AMLODIPINE 10MG TABLET PO SCH ×2 (09:00→09:06)
[2019-09-25] MEDS ORDERED: FUROSEMIDE 40MG/4ML VIAL IVP SCH (09:00)
[2019-09-25] MEDS: ENOXAPARIN 30MG/0.3ML SYR SUBCUT SCH (09:06)
[2019-09-25] MEDS: CITRIC ACID/SODIUM CITRATE SOLN 30ML UDC PO SCH (09:06)
[2019-09-25] MEDS: GUAIFENESIN 600MG ER TABLET PO SCH ×2 (09:07→20:52)
[2019-09-25] MEDS ORDERED: HYDRALAZINE HCL 50MG TABLET PO SCH (14:00)
[2019-09-25] MEDS: FAMOTIDINE 20MG TABLET NG SCH (20:52)
[2019-09-25] MEDS ORDERED: CLONIDINE 0.1MG TABLET PO SCH (21:00)
[2019-09-26] VITALS (37 sets, daily range): BP systolic 117–174; BP diastolic 40–104
[2019-09-26] MEDS: ALBUTEROL 6.7GM HFA INHALER ORI SCH ×4 (04:00→13:23)
[2019-09-26 05:01] LABS: BASOPHILS % 0.4 % (0.0-2.0); EOSINOPHILS % 3.5 % (0.0-5.0); HEMATOCRIT. 29.1 % (42.0-52.0); HEMOGLOBIN. 9.9 g/dL (14.0-18.0); LYMPHOCYTES % 8.6 % (20.0-50.0); MEAN CORPUSCULAR HEMOGLOBIN 28.9 pg (28.0-32.0); MEAN PLATELET VOLUME 9.4 fl (7.4-10.4); MONOCYTES % 6.2 % (2.0-8.0); NEUTROPHILS % 81.3 % (40.0-76.0); PLATELET 267 x1000/uL (130-400); RED BLOOD CELL COUNT 3.42 mill/uL (4.7-6.1); RED CELL DISTRIBUTION WIDTH 14.2 % (11.6-14.6)
[2019-09-26] MEDS: SODIUM CHLORIDE 0.9% INJ 3ML FLUSH IVF SCH ×3 (05:40→21:19)
[2019-09-26] MEDS: METOPROLOL TARTRATE 50MG TABLET PO SCH ×3 (06:00→21:19)
[2019-09-26] MEDS: BLOOD SUGAR DIAGNOSTIC STRIP TEST SCH ×3 (06:30→20:01)
[2019-09-26] MEDS: SEVELAMER CARBONATE 800 MG TABLET PO SCH (07:33)
[2019-09-26] MEDS: GUAIFENESIN 600MG ER TABLET PO SCH ×2 (09:14→20:27)
[2019-09-26] MEDS: TAMSULOSIN HCL 0.4MG SR CAPSULE PO SCH (09:14)
[2019-09-26] MEDS: ENOXAPARIN 30MG/0.3ML SYR SUBCUT SCH (09:14)
[2019-09-26] MEDS: FAMOTIDINE 20MG TABLET NG SCH (20:27)
[2019-09-27] VITALS (34 sets, daily range): BP systolic 108–177; BP diastolic 59–104
[2019-09-27] MEDS: SODIUM CHLORIDE 0.9% INJ 3ML FLUSH IVF SCH ×3 (05:20→21:37)
[2019-09-27] MEDS: METOPROLOL TARTRATE 50MG TABLET PO SCH ×3 (05:32→21:37)
[2019-09-27] MEDS: BLOOD SUGAR DIAGNOSTIC STRIP TEST SCH ×5 (05:32→20:09)
[2019-09-27 05:46] LABS: BASOPHILS % 0.6 % (0.0-2.0); EOSINOPHILS % 2.7 % (0.0-5.0); HEMATOCRIT. 32.6 % (42.0-52.0); HEMOGLOBIN. 10.9 g/dL (14.0-18.0); LYMPHOCYTES % 8.4 % (20.0-50.0); MEAN CORPUSCULAR HEMOGLOBIN 28.6 pg (28.0-32.0); MEAN PLATELET VOLUME 9.3 fl (7.4-10.4); MONOCYTES % 6.1 % (2.0-8.0); NEUTROPHILS % 82.2 % (40.0-76.0); PLATELET 291 x1000/uL (130-400); RED BLOOD CELL COUNT 3.83 mill/uL (4.7-6.1)
[2019-09-27 05:58] LABS: CHLORIDE 102 mEq/L (98-107)
[2019-09-27 06:08] LABS: PHOSPHORUS 4.4 mg/dL (2.5-4.9)
[2019-09-27] MEDS: GUAIFENESIN 600MG ER TABLET PO SCH ×2 (08:00→21:37)
[2019-09-27] MEDS: TAMSULOSIN HCL 0.4MG SR CAPSULE PO SCH (08:01)
[2019-09-27] MEDS: ENOXAPARIN 30MG/0.3ML SYR SUBCUT SCH (08:02)
[2019-09-27] MEDS: ALBUTEROL 6.7GM HFA INHALER ORI SCH ×3 (09:13→16:09)
[2019-09-27] MEDS: FAMOTIDINE 20MG TABLET NG SCH (21:37)
[2019-09-28 00:20] VITALS: BP 142/75
[2019-09-28 04:00] VITALS: BP 144/72
[2019-09-28] MEDS: ALBUTEROL 6.7GM HFA INHALER ORI SCH ×5 (04:00→20:00)
[2019-09-28] MEDS: SODIUM CHLORIDE 0.9% INJ 3ML FLUSH IVF SCH ×3 (05:31→21:13)
[2019-09-28] MEDS: METOPROLOL TARTRATE 50MG TABLET PO SCH ×3 (05:31→21:12)
[2019-09-28 06:38] LABS: BASOPHILS % 0.7 % (0.0-2.0); EOSINOPHILS % 1.9 % (0.0-5.0); HEMATOCRIT. 28.7 % (42.0-52.0); HEMOGLOBIN. 9.6 g/dL (14.0-18.0); LYMPHOCYTES % 8.1 % (20.0-50.0); MEAN CORPUSCULAR HEMOGLOBIN 28.5 pg (28.0-32.0); MEAN CORPUSCULAR VOLUME 85.2 fL (80.0-94.0); MEAN PLATELET VOLUME 9.3 fl (7.4-10.4); MONOCYTES % 5.7 % (2.0-8.0); NEUTROPHILS % 83.6 % (40.0-76.0); PLATELET 275 x1000/uL (130-400); RED BLOOD CELL COUNT 3.37 mill/uL (4.7-6.1); RED CELL DISTRIBUTION WIDTH 14.2 % (11.6-14.6)
[2019-09-28] MEDS: BLOOD SUGAR DIAGNOSTIC STRIP TEST SCH ×4 (07:32→21:13)
[2019-09-28 08:00] VITALS: BP 125/72
[2019-09-28] MEDS: GUAIFENESIN 600MG ER TABLET PO SCH ×2 (08:51→21:12)
[2019-09-28] MEDS: ENOXAPARIN 30MG/0.3ML SYR SUBCUT SCH (08:52)
[2019-09-28] MEDS: TAMSULOSIN HCL 0.4MG SR CAPSULE PO SCH (08:53)
[2019-09-28 12:00] VITALS: BP 125/64
[2019-09-28 16:00] VITALS: BP 162/83
[2019-09-28 20:00] VITALS: BP 147/72
[2019-09-28] MEDS: FAMOTIDINE 20MG TABLET NG SCH (21:12)
[2019-09-29] VITALS (8 sets, daily range): BP systolic 120–140; BP diastolic 57–78
[2019-09-29] MEDS: METOPROLOL TARTRATE 50MG TABLET PO SCH ×3 (05:20→20:15)
[2019-09-29] MEDS: SODIUM CHLORIDE 0.9% INJ 3ML FLUSH IVF SCH ×3 (05:20→20:15)
[2019-09-29] MEDS: BLOOD SUGAR DIAGNOSTIC STRIP TEST SCH ×4 (06:12→20:15)
[2019-09-29 06:24] LABS: BASOPHILS % 1.1 % (0.0-2.0); EOSINOPHILS % 2.6 % (0.0-5.0); HEMATOCRIT. 29.2 % (42.0-52.0); HEMOGLOBIN. 9.6 g/dL (14.0-18.0); LYMPHOCYTES % 11.2 % (20.0-50.0); MEAN CORPUSCULAR HEMOGLOBIN 28.4 pg (28.0-32.0); MEAN CORPUSCULAR VOLUME 86.4 fL (80.0-94.0); MEAN PLATELET VOLUME 9.3 fl (7.4-10.4); MONOCYTES % 8.8 % (2.0-8.0); NEUTROPHILS % 76.3 % (40.0-76.0); PLATELET 291 x1000/uL (130-400); RED BLOOD CELL COUNT 3.37 mill/uL (4.7-6.1)
[2019-09-29 06:42] LABS: PHOSPHORUS 4.5 mg/dL (2.5-4.9)
[2019-09-29] MEDS: TAMSULOSIN HCL 0.4MG SR CAPSULE PO SCH (09:49)
[2019-09-29] MEDS: ENOXAPARIN 30MG/0.3ML SYR SUBCUT SCH (09:49)
[2019-09-29] MEDS: GUAIFENESIN 600MG ER TABLET PO SCH ×2 (09:50→20:15)
[2019-09-29] MEDS: ACETAMINOPHEN 325MG TABLET PO PRN (12:37)
[2019-09-29] MEDS: ALBUTEROL 6.7GM HFA INHALER ORI SCH (20:00)
[2019-09-29] MEDS: FAMOTIDINE 20MG TABLET NG SCH (20:15)
[2019-09-30] VITALS: BP_SYST 147; BP_SYST 149; BP_DIAS 76; BP_DIAS 83
[2019-09-30 04:00] VITALS: BP 143/71
[2019-09-30] MEDS: ALBUTEROL 6.7GM HFA INHALER ORI SCH ×2 (04:40)
[2019-09-30] MEDS: METOPROLOL TARTRATE 50MG TABLET PO SCH ×3 (05:12→21:01)
[2019-09-30] MEDS: SODIUM CHLORIDE 0.9% INJ 3ML FLUSH IVF SCH ×3 (06:00→21:01)
[2019-09-30 06:45] LABS: PHOSPHORUS 3.6 mg/dL (2.5-4.9)
[2019-09-30 06:55] LABS: HEMATOCRIT. 27.1 % (42.0-52.0); MEAN CORPUSCULAR HEMOGLOBIN 28.4 pg (28.0-32.0); MEAN CORPUSCULAR VOLUME 85.7 fL (80.0-94.0); MEAN PLATELET VOLUME 8.8 fl (7.4-10.4); PLATELET 322 x1000/uL (130-400); RED BLOOD CELL COUNT 3.17 mill/uL (4.7-6.1); RED CELL DISTRIBUTION WIDTH 14.3 % (11.6-14.6)
[2019-09-30] MEDS: BLOOD SUGAR DIAGNOSTIC STRIP TEST SCH ×4 (07:06→21:01)
[2019-09-30 08:00] VITALS: BP 130/64
[2019-09-30] MEDS: GUAIFENESIN 600MG ER TABLET PO SCH ×2 (09:02→21:01)
[2019-09-30] MEDS: TAMSULOSIN HCL 0.4MG SR CAPSULE PO SCH (09:02)
[2019-09-30] MEDS: ENOXAPARIN 30MG/0.3ML SYR SUBCUT SCH (09:02)
[2019-09-30 10:24] LABS: PLATELET ESTIMATE NORMAL
[2019-09-30 12:00] VITALS: BP 130/64
[2019-09-30 16:00] VITALS: BP 182/81
[2019-09-30] MEDS: MEGESTROL ACETATE 400 MG/10 ML UDC PO SCH (18:05)
[2019-09-30] MEDS: DEXTROSE 50% WATER 50ML SYRINGE IV PRN (18:32)
[2019-09-30 20:00] VITALS: BP 153/72
[2019-09-30] MEDS: FAMOTIDINE 20MG TABLET NG SCH (21:01)
[2019-10-01] VITALS: BP 140/60
[2019-10-01 04:00] VITALS: BP 129/64
[2019-10-01 06:03] LABS: PHOSPHORUS 3.9 mg/dL (2.5-4.9)
[2019-10-01 06:11] LABS: EOSINOPHILS % 0.9 % (0.0-5.0); HEMATOCRIT. 28.3 % (42.0-52.0); HEMOGLOBIN. 9.3 g/dL (14.0-18.0); LYMPHOCYTES % 11.9 % (20.0-50.0); MEAN CORPUSCULAR HEMOGLOBIN 28.3 pg (28.0-32.0); MEAN CORPUSCULAR VOLUME 86.3 fL (80.0-94.0); MONOCYTES % 8.3 % (2.0-8.0); NEUTROPHILS % 77.9 % (40.0-76.0); PLATELET 329 x1000/uL (130-400); RED BLOOD CELL COUNT 3.28 mill/uL (4.7-6.1); RED CELL DISTRIBUTION WIDTH 14.2 % (11.6-14.6)
[2019-10-01] MEDS: SODIUM CHLORIDE 0.9% INJ 3ML FLUSH IVF SCH ×3 (06:21→22:30)
[2019-10-01] MEDS: METOPROLOL TARTRATE 50MG TABLET PO SCH ×3 (06:21→22:27)
[2019-10-01] MEDS: BLOOD SUGAR DIAGNOSTIC STRIP TEST SCH ×4 (06:56→21:00)
[2019-10-01 08:00] VITALS: BP 124/65
[2019-10-01] MEDS: ALBUTEROL 6.7GM HFA INHALER ORI SCH ×4 (08:00→22:30)
[2019-10-01] MEDS: ENOXAPARIN 30MG/0.3ML SYR SUBCUT SCH (08:40)
[2019-10-01] MEDS: GUAIFENESIN 600MG ER TABLET PO SCH ×2 (08:40→22:28)
[2019-10-01] MEDS: MEGESTROL ACETATE 400 MG/10 ML UDC PO SCH ×2 (08:40→09:00)
[2019-10-01] MEDS: TAMSULOSIN HCL 0.4MG SR CAPSULE PO SCH (08:58)
[2019-10-01 12:00] VITALS: BP 120/62
[2019-10-01] MEDS: DEXT 5%/0.9% NACL 1,000 ML IV SCH (12:27)
[2019-10-01 16:00] VITALS: BP 129/68
[2019-10-01 20:00] VITALS: BP 128/61
[2019-10-01] MEDS: FAMOTIDINE 20MG TABLET NG SCH (22:27)
[2019-10-02] VITALS: BP 135/63
[2019-10-02] MEDS: ALBUTEROL 6.7GM HFA INHALER ORI SCH ×7 (00:59→20:35)
[2019-10-02 04:00] VITALS: BP 131/68
[2019-10-02] MEDS: SODIUM CHLORIDE 0.9% INJ 3ML FLUSH IVF SCH ×3 (05:34→20:44)
[2019-10-02] MEDS: METOPROLOL TARTRATE 50MG TABLET PO SCH ×3 (05:34→20:44)
[2019-10-02] MEDS: DEXT 5%/0.9% NACL 1,000 ML IV SCH (05:34)
[2019-10-02] MEDS: BLOOD SUGAR DIAGNOSTIC STRIP TEST SCH ×4 (07:40→20:44)
[2019-10-02 08:00] VITALS: BP 143/69
[2019-10-02 08:02] LABS: BASOPHILS % 1.5 % (0.0-2.0); EOSINOPHILS % 7.1 % (0.0-5.0); HEMATOCRIT. 26.8 % (42.0-52.0); MEAN CORPUSCULAR HEMOGLOBIN 28.4 pg (28.0-32.0); MEAN CORPUSCULAR VOLUME 85.1 fL (80.0-94.0); MEAN PLATELET VOLUME 8.6 fl (7.4-10.4); MONOCYTES % 9.6 % (2.0-8.0); NEUTROPHILS % 67.8 % (40.0-76.0); PLATELET 319 x1000/uL (130-400); RED BLOOD CELL COUNT 3.15 mill/uL (4.7-6.1); RED CELL DISTRIBUTION WIDTH 14.4 % (11.6-14.6)
[2019-10-02 08:34] LABS: PHOSPHORUS 4.2 mg/dL (2.5-4.9)
[2019-10-02] MEDS: GUAIFENESIN 600MG ER TABLET PO SCH ×2 (08:40→20:44)
[2019-10-02] MEDS: MEGESTROL ACETATE 400 MG/10 ML UDC PO SCH (08:40)
[2019-10-02] MEDS: ENOXAPARIN 30MG/0.3ML SYR SUBCUT SCH ×2 (08:41→08:52)
[2019-10-02] MEDS: TAMSULOSIN HCL 0.4MG SR CAPSULE PO SCH (08:45)
[2019-10-02] MEDS ORDERED: TRAMADOL 50MG TABLET PO PRN (10:30)
[2019-10-02] MEDS: LACTULOSE 20G/30ML UDC PO SCH ×2 (11:00→11:39)
[2019-10-02 12:00] VITALS: BP 137/66
[2019-10-02 16:00] VITALS: BP 126/61
[2019-10-02 20:00] VITALS: BP 148/74
[2019-10-02] MEDS: FAMOTIDINE 20MG TABLET NG SCH (20:44)
[2019-10-03] VITALS: BP 145/71
[2019-10-03] MEDS: DEXT 5%/0.9% NACL 1,000 ML IV SCH ×2 (00:50→21:18)
[2019-10-03 04:00] VITALS: BP 146/89
[2019-10-03] MEDS: ALBUTEROL 6.7GM HFA INHALER ORI SCH ×6 (04:28→20:17)
[2019-10-03] MEDS: METOPROLOL TARTRATE 50MG TABLET PO SCH ×3 (05:50→21:16)
[2019-10-03] MEDS: SODIUM CHLORIDE 0.9% INJ 3ML FLUSH IVF SCH ×3 (05:51→21:16)
[2019-10-03] MEDS: BLOOD SUGAR DIAGNOSTIC STRIP TEST SCH ×4 (05:51→21:10)
[2019-10-03 06:59] LABS: BASOPHILS % 1.3 % (0.0-2.0); EOSINOPHILS % 2.7 % (0.0-5.0); HEMATOCRIT. 24.3 % (42.0-52.0); HEMOGLOBIN. 8.1 g/dL (14.0-18.0); LYMPHOCYTES % 14.4 % (20.0-50.0); MEAN CORPUSCULAR HEMOGLOBIN 28.5 pg (28.0-32.0); MEAN CORPUSCULAR VOLUME 85.9 fL (80.0-94.0); MONOCYTES % 8.3 % (2.0-8.0); NEUTROPHILS % 73.3 % (40.0-76.0); PLATELET 185 x1000/uL (130-400); RED BLOOD CELL COUNT 2.83 mill/uL (4.7-6.1); RED CELL DISTRIBUTION WIDTH 14.3 % (11.6-14.6)
[2019-10-03 08:00] VITALS: BP 150/73
[2019-10-03] MEDS: GUAIFENESIN 600MG ER TABLET PO SCH ×2 (09:57→21:15)
[2019-10-03] MEDS: MEGESTROL ACETATE 400 MG/10 ML UDC PO SCH (09:57)
[2019-10-03] MEDS: ENOXAPARIN 30MG/0.3ML SYR SUBCUT SCH (09:58)
[2019-10-03] MEDS: TAMSULOSIN HCL 0.4MG SR CAPSULE PO SCH (09:58)
[2019-10-03 12:00] VITALS: BP 144/73
[2019-10-03 16:00] VITALS: BP 131/68
[2019-10-03 20:00] VITALS: BP 144/75
[2019-10-03] MEDS: FAMOTIDINE 20MG TABLET NG SCH (21:15)
[2019-10-04] VITALS: BP 147/93
[2019-10-04] MEDS: ALBUTEROL 6.7GM HFA INHALER ORI SCH ×8 (00:48→23:52)
[2019-10-04 04:00] VITALS: BP 152/71
[2019-10-04] MEDS: METOPROLOL TARTRATE 50MG TABLET PO SCH ×3 (06:34→21:10)
[2019-10-04] MEDS: SODIUM CHLORIDE 0.9% INJ 3ML FLUSH IVF SCH ×3 (06:36→21:11)
[2019-10-04] MEDS: BLOOD SUGAR DIAGNOSTIC STRIP TEST SCH ×4 (07:22→21:11)
[2019-10-04 07:46] LABS: BASOPHILS % 1.7 % (0.0-2.0); HEMATOCRIT. 25.6 % (42.0-52.0); HEMOGLOBIN. 8.5 g/dL (14.0-18.0); LYMPHOCYTES % 16.7 % (20.0-50.0); MEAN CORPUSCULAR HEMOGLOBIN 28.8 pg (28.0-32.0); MEAN CORPUSCULAR VOLUME 87.2 fL (80.0-94.0); MEAN PLATELET VOLUME 8.7 fl (7.4-10.4); MONOCYTES % 8.8 % (2.0-8.0); NEUTROPHILS % 70.8 % (40.0-76.0); PLATELET 398 x1000/uL (130-400); RED BLOOD CELL COUNT 2.94 mill/uL (4.7-6.1); RED CELL DISTRIBUTION WIDTH 14.3 % (11.6-14.6)
[2019-10-04 08:00] VITALS: BP 157/75
[2019-10-04] MEDS: TAMSULOSIN HCL 0.4MG SR CAPSULE PO SCH ×2 (08:40→09:00)
[2019-10-04] MEDS: ENOXAPARIN 30MG/0.3ML SYR SUBCUT SCH (08:40)
[2019-10-04] MEDS: MEGESTROL ACETATE 400 MG/10 ML UDC PO SCH ×2 (08:40→09:00)
[2019-10-04] MEDS: GUAIFENESIN 600MG ER TABLET PO SCH ×3 (08:40→21:10)
[2019-10-04 12:00] VITALS: BP 138/79
[2019-10-04] MEDS: SODIUM POLYSTYRENE SULFONATE 15 G/60 ML BOT PO NR ×2 (13:30→14:05)
[2019-10-04 16:00] VITALS: BP 148/78
[2019-10-04] MEDS: DEXT 5%/0.9% NACL 1,000 ML IV SCH (17:26)
[2019-10-04 20:00] VITALS: BP 167/79
[2019-10-04] MEDS: FAMOTIDINE 20MG TABLET NG SCH (21:11)
[2019-10-05] VITALS (7 sets, daily range): BP systolic 126–169; BP diastolic 73–87
[2019-10-05] MEDS: ALBUTEROL 6.7GM HFA INHALER ORI SCH ×5 (04:00→16:00)
[2019-10-05] MEDS: METOPROLOL TARTRATE 50MG TABLET PO SCH ×4 (05:48→21:15)
[2019-10-05] MEDS: SODIUM CHLORIDE 0.9% INJ 3ML FLUSH IVF SCH ×3 (05:49→21:15)
[2019-10-05 06:06] LABS: BASOPHILS % 2.6 % (0.0-2.0); EOSINOPHILS % 4.1 % (0.0-5.0); HEMATOCRIT. 26.5 % (42.0-52.0); HEMOGLOBIN. 8.8 g/dL (14.0-18.0); LYMPHOCYTES % 18.3 % (20.0-50.0); MEAN CORPUSCULAR HEMOGLOBIN 28.7 pg (28.0-32.0); MEAN CORPUSCULAR VOLUME 86.9 fL (80.0-94.0); MEAN PLATELET VOLUME 8.6 fl (7.4-10.4); MONOCYTES % 10.2 % (2.0-8.0); NEUTROPHILS % 64.8 % (40.0-76.0); PLATELET 418 x1000/uL (130-400); RED BLOOD CELL COUNT 3.05 mill/uL (4.7-6.1); RED CELL DISTRIBUTION WIDTH 14.4 % (11.6-14.6)
[2019-10-05] MEDS: BLOOD SUGAR DIAGNOSTIC STRIP TEST SCH ×4 (06:55→21:00)
[2019-10-05 06:57] LABS: PHOSPHORUS 4.4 mg/dL (2.5-4.9)
[2019-10-05] MEDS: ENOXAPARIN 30MG/0.3ML SYR SUBCUT SCH ×2 (09:00→10:23)
[2019-10-05] MEDS: TAMSULOSIN HCL 0.4MG SR CAPSULE PO SCH ×2 (09:00→10:24)
[2019-10-05] MEDS: GUAIFENESIN 600MG ER TABLET PO SCH ×3 (09:00→20:19)
[2019-10-05] MEDS: MEGESTROL ACETATE 400 MG/10 ML UDC PO SCH ×2 (09:00→10:24)
[2019-10-05] MEDS: DEXT 5%/0.9% NACL 1,000 ML IV SCH (14:43)
[2019-10-05] MEDS ORDERED: DEXT 5%/0.45% NACL 1000ML 1,000 ML IV SCH (16:00)
[2019-10-05] MEDS: FAMOTIDINE 20MG TABLET NG SCH (20:19)
[2019-10-06 00:11] VITALS: BP 155/76
[2019-10-06] MEDS: ALBUTEROL 6.7GM HFA INHALER ORI SCH ×5 (04:00→20:39)
[2019-10-06 04:43] VITALS: BP 170/81
[2019-10-06] MEDS: METOPROLOL TARTRATE 50MG TABLET PO SCH ×3 (05:26→20:39)
[2019-10-06] MEDS: SODIUM CHLORIDE 0.9% INJ 3ML FLUSH IVF SCH ×3 (05:26→20:38)
[2019-10-06 07:14] LABS: BASOPHILS % 2.2 % (0.0-2.0); EOSINOPHILS % 6.3 % (0.0-5.0); HEMATOCRIT. 24.7 % (42.0-52.0); MEAN CORPUSCULAR HEMOGLOBIN 28.3 pg (28.0-32.0); MEAN PLATELET VOLUME 8.5 fl (7.4-10.4); MONOCYTES % 9.4 % (2.0-8.0); NEUTROPHILS % 60.1 % (40.0-76.0); PLATELET 399 x1000/uL (130-400); RED BLOOD CELL COUNT 2.84 mill/uL (4.7-6.1); RED CELL DISTRIBUTION WIDTH 14.4 % (11.6-14.6)
[2019-10-06] MEDS: BLOOD SUGAR DIAGNOSTIC STRIP TEST SCH ×4 (07:40→20:38)
[2019-10-06] MEDS: MEGESTROL ACETATE 400 MG/10 ML UDC PO SCH (09:49)
[2019-10-06] MEDS: TAMSULOSIN HCL 0.4MG SR CAPSULE PO SCH (09:50)
[2019-10-06] MEDS: GUAIFENESIN 600MG ER TABLET PO SCH ×2 (09:50→20:38)
[2019-10-06] MEDS: ENOXAPARIN 30MG/0.3ML SYR SUBCUT SCH (09:50)
[2019-10-06] MEDS: DEXTROSE 5% WATER 1,000 ML IV SCH (11:51)
[2019-10-06 12:00] VITALS: BP 156/86
[2019-10-06] MEDS: AMLODIPINE 5MG TABLET PO SCH (14:01)
[2019-10-06 16:00] VITALS: BP 149/74
[2019-10-06 20:00] VITALS: BP 168/80
[2019-10-06] MEDS: FAMOTIDINE 20MG TABLET NG SCH (20:38)
[2019-10-06] MEDS: ACETAMINOPHEN 325MG TABLET PO PRN (20:39)
[2019-10-07] VITALS: BP 146/85
[2019-10-07 04:00] VITALS: BP 135/88
[2019-10-07] MEDS: ALBUTEROL 6.7GM HFA INHALER ORI SCH ×6 (04:00→22:44)
[2019-10-07] MEDS: SODIUM CHLORIDE 0.9% INJ 3ML FLUSH IVF SCH ×3 (05:29→22:44)
[2019-10-07] MEDS: METOPROLOL TARTRATE 50MG TABLET PO SCH ×3 (05:33→22:44)
[2019-10-07] MEDS: DEXTROSE 5% WATER 1,000 ML IV SCH (07:30)
[2019-10-07] MEDS: BLOOD SUGAR DIAGNOSTIC STRIP TEST SCH ×4 (07:40→21:00)
[2019-10-07 08:00] VITALS: BP 176/77
[2019-10-07] MEDS: MEGESTROL ACETATE 400 MG/10 ML UDC PO SCH (09:57)
[2019-10-07] MEDS: TAMSULOSIN HCL 0.4MG SR CAPSULE PO SCH (09:58)
[2019-10-07] MEDS: GUAIFENESIN 600MG ER TABLET PO SCH ×2 (09:59→22:44)
[2019-10-07] MEDS: AMLODIPINE 5MG TABLET PO SCH (09:59)
[2019-10-07] MEDS: ENOXAPARIN 40MG/0.4ML SYR SUBCUT SCH (10:00)
[2019-10-07 12:00] VITALS: BP 166/78
[2019-10-07 16:00] VITALS: BP 157/72
[2019-10-07 20:00] VITALS: BP 170/84
[2019-10-07] MEDS: FAMOTIDINE 20MG TABLET NG SCH (22:43)
[2019-10-08] MEDS: ALBUTEROL 6.7GM HFA INHALER ORI SCH ×7 (03:47→23:30)
[2019-10-08] MEDS: SODIUM CHLORIDE 0.9% INJ 3ML FLUSH IVF SCH ×3 (03:48→21:14)
[2019-10-08] MEDS: DEXTROSE 5% WATER 1,000 ML IV SCH (03:50)
[2019-10-08 04:00] VITALS: BP 177/70
[2019-10-08] MEDS: METOPROLOL TARTRATE 50MG TABLET PO SCH ×3 (06:33→23:29)
[2019-10-08] MEDS: BLOOD SUGAR DIAGNOSTIC STRIP TEST SCH ×4 (06:33→21:00)
[2019-10-08 08:00] VITALS: BP 157/67
[2019-10-08] MEDS: GUAIFENESIN 600MG ER TABLET PO SCH ×2 (09:05→21:11)
[2019-10-08] MEDS: MEGESTROL ACETATE 400 MG/10 ML UDC PO SCH (09:05)
[2019-10-08] MEDS: AMLODIPINE 5MG TABLET PO SCH (09:06)
[2019-10-08] MEDS: TAMSULOSIN HCL 0.4MG SR CAPSULE PO SCH (09:06)
[2019-10-08] MEDS: ENOXAPARIN 40MG/0.4ML SYR SUBCUT SCH (09:06)
[2019-10-08 12:00] VITALS: BP 145/68
[2019-10-08 16:00] VITALS: BP 136/81
[2019-10-08 20:00] VITALS: BP 142/58
[2019-10-08] MEDS: FAMOTIDINE 20MG TABLET NG SCH (21:11)
[2019-10-09] VITALS: BP 140/68
[2019-10-09] MEDS: ALBUTEROL 6.7GM HFA INHALER ORI SCH ×5 (04:00→20:00)
[2019-10-09 06:52] VITALS: BP 178/79
[2019-10-09] MEDS: METOPROLOL TARTRATE 50MG TABLET PO SCH ×3 (07:17→21:47)
[2019-10-09] MEDS: BLOOD SUGAR DIAGNOSTIC STRIP TEST SCH ×4 (07:40→21:47)
[2019-10-09 07:55] LABS: BASOPHILS % 0.7 % (0.0-2.0); EOSINOPHILS % 1.4 % (0.0-5.0); HEMATOCRIT. 23.1 % (42.0-52.0); HEMOGLOBIN. 7.6 g/dL (14.0-18.0); LYMPHOCYTES % 15.2 % (20.0-50.0); MEAN CORPUSCULAR VOLUME 85.1 fL (80.0-94.0); MEAN PLATELET VOLUME 8.3 fl (7.4-10.4); MONOCYTES % 7.5 % (2.0-8.0); NEUTROPHILS % 75.2 % (40.0-76.0); PLATELET 403 x1000/uL (130-400); RED BLOOD CELL COUNT 2.71 mill/uL (4.7-6.1); RED CELL DISTRIBUTION WIDTH 14.8 % (11.6-14.6)
[2019-10-09] MEDS: SODIUM CHLORIDE 0.9% INJ 3ML FLUSH IVF SCH ×3 (07:59→21:47)
[2019-10-09 08:00] VITALS: BP 168/73
[2019-10-09 08:08] LABS: PHOSPHORUS 2.9 mg/dL (2.5-4.9)
[2019-10-09] MEDS: GUAIFENESIN 600MG ER TABLET PO SCH ×2 (08:49→21:46)
[2019-10-09] MEDS: TAMSULOSIN HCL 0.4MG SR CAPSULE PO SCH (08:50)
[2019-10-09] MEDS: MEGESTROL ACETATE 400 MG/10 ML UDC PO SCH (08:50)
[2019-10-09] MEDS: AMLODIPINE 5MG TABLET PO SCH (08:50)
[2019-10-09] MEDS: ENOXAPARIN 40MG/0.4ML SYR SUBCUT SCH (08:51)
[2019-10-09 12:00] VITALS: BP 148/74
[2019-10-09 16:00] VITALS: BP 133/62
[2019-10-09 21:20] VITALS: BP 147/69
[2019-10-09] MEDS: FAMOTIDINE 20MG TABLET NG SCH (21:47)
[2019-10-10 04:00] VITALS: BP 166/72
[2019-10-10] MEDS: ALBUTEROL 6.7GM HFA INHALER ORI SCH ×4 (04:00→22:02)
[2019-10-10] MEDS: METOPROLOL TARTRATE 50MG TABLET PO SCH ×3 (05:19→22:04)
[2019-10-10] MEDS: SODIUM CHLORIDE 0.9% INJ 3ML FLUSH IVF SCH ×2 (05:20→18:01)
[2019-10-10 07:42] LABS: BASOPHILS % 0.8 % (0.0-2.0); EOSINOPHILS % 1.7 % (0.0-5.0); MEAN CORPUSCULAR HEMOGLOBIN 28.5 pg (28.0-32.0); MEAN CORPUSCULAR VOLUME 85.9 fL (80.0-94.0); MEAN PLATELET VOLUME 8.6 fl (7.4-10.4); MONOCYTES % 7.8 % (2.0-8.0); NEUTROPHILS % 72.7 % (40.0-76.0); PLATELET 436 x1000/uL (130-400); RED BLOOD CELL COUNT 2.79 mill/uL (4.7-6.1); RED CELL DISTRIBUTION WIDTH 14.7 % (11.6-14.6)
[2019-10-10] MEDS: BLOOD SUGAR DIAGNOSTIC STRIP TEST SCH (07:44)
[2019-10-10 08:05] LABS: PHOSPHORUS 2.9 mg/dL (2.5-4.9)
[2019-10-10 08:55] VITALS: BP 105/66
[2019-10-10] MEDS: AMLODIPINE 5MG TABLET PO SCH (09:00)
[2019-10-10] MEDS: MEGESTROL ACETATE 400 MG/10 ML UDC PO SCH (10:26)
[2019-10-10] MEDS: GUAIFENESIN 600MG ER TABLET PO SCH ×2 (10:27→21:59)
[2019-10-10] MEDS: ENOXAPARIN 40MG/0.4ML SYR SUBCUT SCH (10:28)
[2019-10-10] MEDS: TAMSULOSIN HCL 0.4MG SR CAPSULE PO SCH (10:28)
[2019-10-10] MEDS ORDERED: SODIUM POLYSTYRENE SULFONATE 15 G/60 ML BOT PO NR (11:15)
[2019-10-10 12:19] VITALS: BP 155/72
[2019-10-10 16:42] VITALS: BP 160/70
[2019-10-10 20:00] VITALS: BP_SYST 153; BP_SYST 179; BP_DIAS 54; BP_DIAS 82
[2019-10-10] MEDS: LORAZEPAM 2MG/ML CPJ IV PRN (20:44)
[2019-10-10] MEDS: FAMOTIDINE 20MG TABLET NG SCH (21:59)
[2019-10-11] VITALS: BP 153/54
[2019-10-11] MEDS: ALBUTEROL 6.7GM HFA INHALER ORI SCH ×7 (00:59→23:28)
[2019-10-11 04:00] VITALS: BP 151/82
[2019-10-11 07:39] LABS: BASOPHILS % 1.4 % (0.0-2.0); EOSINOPHILS % 1.7 % (0.0-5.0); HEMATOCRIT. 22.5 % (42.0-52.0); HEMOGLOBIN. 7.6 g/dL (14.0-18.0); LYMPHOCYTES % 16.4 % (20.0-50.0); MEAN CORPUSCULAR HEMOGLOBIN 28.8 pg (28.0-32.0); MEAN PLATELET VOLUME 8.3 fl (7.4-10.4); MONOCYTES % 9.9 % (2.0-8.0); NEUTROPHILS % 70.6 % (40.0-76.0); PLATELET 422 x1000/uL (130-400); RED BLOOD CELL COUNT 2.62 mill/uL (4.7-6.1); RED CELL DISTRIBUTION WIDTH 14.7 % (11.6-14.6)
[2019-10-11 08:00] VITALS: BP 180/58
[2019-10-11 08:17] LABS: PHOSPHORUS 3.4 mg/dL (2.5-4.9)
[2019-10-11] MEDS: LORAZEPAM 2MG/ML CPJ IV PRN (09:04)
[2019-10-11] MEDS: ENOXAPARIN 40MG/0.4ML SYR SUBCUT SCH (09:04)
[2019-10-11] MEDS: TAMSULOSIN HCL 0.4MG SR CAPSULE PO SCH (09:04)
[2019-10-11] MEDS: GUAIFENESIN 600MG ER TABLET PO SCH ×2 (09:05→21:34)
[2019-10-11] MEDS: AMLODIPINE 5MG TABLET PO SCH (09:05)
[2019-10-11] MEDS: MEGESTROL ACETATE 400 MG/10 ML UDC PO SCH (09:06)
[2019-10-11 12:00] VITALS: BP 167/86
[2019-10-11 16:00] VITALS: BP 173/74
[2019-10-11 20:00] VITALS: BP 195/92
[2019-10-11] MEDS: FAMOTIDINE 20MG TABLET NG SCH (21:34)
[2019-10-12] VITALS: BP 170/81
[2019-10-12] MEDS ORDERED: ACETAMINOPHEN 325MG TABLET PO PRN (01:45)
[2019-10-12 04:00] VITALS: BP 165/72
[2019-10-12] MEDS: ALBUTEROL 6.7GM HFA INHALER ORI SCH ×4 (05:09→16:33)
[2019-10-12 08:00] VITALS: BP 163/76
[2019-10-12 08:08] LABS: BASOPHILS % 2.2 % (0.0-2.0); EOSINOPHILS % 0.8 % (0.0-5.0); HEMATOCRIT. 22.5 % (42.0-52.0); HEMOGLOBIN. 7.4 g/dL (14.0-18.0); LYMPHOCYTES % 13.1 % (20.0-50.0); MEAN CORPUSCULAR HEMOGLOBIN 28.6 pg (28.0-32.0); MEAN CORPUSCULAR VOLUME 86.5 fL (80.0-94.0); MEAN PLATELET VOLUME 8.5 fl (7.4-10.4); MONOCYTES % 10.9 % (2.0-8.0); PLATELET 447 x1000/uL (130-400); RED CELL DISTRIBUTION WIDTH 14.9 % (11.6-14.6)
[2019-10-12 08:21] LABS: PHOSPHORUS 4.3 mg/dL (2.5-4.9)
[2019-10-12] MEDS: GUAIFENESIN 600MG ER TABLET PO SCH ×2 (08:33→21:11)
[2019-10-12] MEDS: ENOXAPARIN 40MG/0.4ML SYR SUBCUT SCH (08:33)
[2019-10-12] MEDS: MEGESTROL ACETATE 400 MG/10 ML UDC PO SCH (08:33)
[2019-10-12] MEDS: TAMSULOSIN HCL 0.4MG SR CAPSULE PO SCH (08:34)
[2019-10-12] MEDS: AMLODIPINE 5MG TABLET PO SCH ×2 (08:34→21:11)
[2019-10-12] MEDS ORDERED: SODIUM POLYSTYRENE SULFONATE 15 G/60 ML BOT PO SCH (10:00)
[2019-10-12] MEDS: METOPROLOL TARTRATE 25MG TABLET PO SCH ×2 (11:26→21:10)
[2019-10-12 12:00] VITALS: BP 166/78
[2019-10-12 15:37] LABS: CLARITY URINE CLEAR (CLEAR); COLOR URINE YELLOW (YELLOW); KETONES URINE TRACE (NEGATIVE); LEUKOCYTE ESTERASE URINE TRACE (NEGATIVE); NITRITE URINE NEGATIVE (NEGATIVE); OCCULT BLOOD URINE TRACE (NEGATIVE); PROTEIN URINE 4+ (NEGATIVE); SPECIFIC GRAVITY URINE 1.022 (1.005-1.030); UROBILINOGEN URINE 0.2 E.U./dL (0.2-1.0)
[2019-10-12 16:00] VITALS: BP 157/75
[2019-10-12 20:00] VITALS: BP 180/73
[2019-10-12] MEDS: FAMOTIDINE 20MG TABLET NG SCH (21:11)
[2019-10-13] VITALS (7 sets, daily range): BP systolic 148–170; BP diastolic 67–93
[2019-10-13 06:12] LABS: PHOSPHORUS 3.9 mg/dL (2.5-4.9)
[2019-10-13 06:27] LABS: EOSINOPHILS % 1.3 % (0.0-5.0); HEMOGLOBIN. 8.1 g/dL (14.0-18.0); MEAN CORPUSCULAR HEMOGLOBIN 28.2 pg (28.0-32.0); MEAN CORPUSCULAR VOLUME 86.7 fL (80.0-94.0); MONOCYTES % 10.4 % (2.0-8.0); NEUTROPHILS % 72.3 % (40.0-76.0); PLATELET 488 x1000/uL (130-400); RED BLOOD CELL COUNT 2.88 mill/uL (4.7-6.1); RED CELL DISTRIBUTION WIDTH 15.2 % (11.6-14.6)
[2019-10-13] MEDS: MEGESTROL ACETATE 400 MG/10 ML UDC PO SCH (09:06)
[2019-10-13] MEDS: TAMSULOSIN HCL 0.4MG SR CAPSULE PO SCH (09:06)
[2019-10-13] MEDS: GUAIFENESIN 600MG ER TABLET PO SCH ×2 (09:07→20:44)
[2019-10-13] MEDS: METOPROLOL TARTRATE 50MG TABLET PO SCH ×2 (09:07→20:44)
[2019-10-13] MEDS: AMLODIPINE 5MG TABLET PO SCH ×2 (09:07→21:15)
[2019-10-13] MEDS: ENOXAPARIN 40MG/0.4ML SYR SUBCUT SCH (09:08)
[2019-10-13] MEDS: ALBUTEROL 6.7GM HFA INHALER ORI SCH ×3 (13:08→20:44)
[2019-10-13] MEDS ORDERED: FAMO20TA8 NG (17:29)
[2019-10-13] MEDS ORDERED: TAMS-11 PO (17:29)
[2019-10-13] MEDS ORDERED: ALBU6.7H9 ORI (17:29)
[2019-10-13] MEDS ORDERED: MEGE400O4 PO (17:29)
[2019-10-13] MEDS: FAMOTIDINE 20MG TABLET NG SCH (20:44)
== END 2019-10-13 22:00 | DRG 871 ==
LOC: ER 21:54 → EDBEDREQTM 09-12 01:24 → EDBEDREQSVC 09-12 01:24 → EDBEDREQ 09-12 01:24 → EDBEDREQDT 09-12 01:24 → ENRESERV 09-13 00:59 → CANRESERV 09-13 00:59 → MICUSO 09-13 01:20 → ENRESERV 09-13 02:00 → 7WST 09-13 15:14 → MICUSO 09-19 18:40 → 7WST 09-27 16:56
PROVIDERS: ADMIT Family Medicine; ATTEND Family Medicine
PROC: 5A09357 Assistance with Respiratory Ventilation, Less than 24 Consecutive Hours, Continuous Positive Airway Pressure (ICD-10-PCS; 2019-09-12)
PROC: 0W993ZZ Drainage of Right Pleural Cavity, Percutaneous Approach (ICD-10-PCS; 2019-09-14)
PROC: 5A1945Z Respiratory Ventilation, 24-96 Consecutive Hours (ICD-10-PCS; principal; 2019-09-19)
PROC: 5A12012 Performance of Cardiac Output, Single, Manual (ICD-10-PCS; 2019-09-19)
PROC: 0BH18EZ Insertion of Endotracheal Airway into Trachea, Via Natural or Artificial Opening Endoscopic (ICD-10-PCS; 2019-09-19)
PROC: 02HV33Z Insertion of Infusion Device into Superior Vena Cava, Percutaneous Approach (ICD-10-PCS; 2019-09-20)
PROC: B548ZZA Ultrasonography of Superior Vena Cava, Guidance (ICD-10-PCS; 2019-09-20)
PROC: 0W9B0ZZ Drainage of Left Pleural Cavity, Open Approach (ICD-10-PCS; 2019-09-23)
DX: A41.89 Other specified sepsis (principal); U07.1 COVID-19; J96.01 Acute respiratory failure with hypoxia; J12.89 Other viral pneumonia; E43 Unspecified severe protein-calorie malnutrition; I46.9 Cardiac arrest, cause unspecified; I50.43 Acute on chronic combined systolic (congestive) and diastolic (congestive) heart failure; G04.90 Encephalitis and encephalomyelitis, unspecified; N17.9 Acute kidney failure, unspecified; E87.1 Hypo-osmolality and hyponatremia; I13.0 Hypertensive heart and chronic kidney disease with heart failure and stage 1 through stage 4 chronic kidney disease, or unspecified chronic kidney disease; J93.83 Other pneumothorax; E87.0 Hyperosmolality and hypernatremia; J90 Pleural effusion, not elsewhere classified; R65.20 Severe sepsis without septic shock; E87.5 Hyperkalemia; D64.9 Anemia, unspecified; E11.22 Type 2 diabetes mellitus with diabetic chronic kidney disease; B97.89 Other viral agents as the cause of diseases classified elsewhere; F29 Unspecified psychosis not due to a substance or known physiological condition; R74.8 Abnormal levels of other serum enzymes; R59.0 Localized enlarged lymph nodes; R74.0 Nonspecific elevation of levels of transaminase and lactic acid dehydrogenase [LDH]; K22.8 Other specified diseases of esophagus; D72.810 Lymphocytopenia; E87.6 Hypokalemia; R33.9 Retention of urine, unspecified; N18.2 Chronic kidney disease, stage 2 (mild); Z78.9 Other specified health status; Z78.1 Physical restraint status; Z68.23 Body mass index [BMI] 23.0-23.9, adult
CPT/HCPCS: 32555; 36415; 36600; 71045; 71250; 73080; 73090; 73130; 76770; 76937; 80048; 80053; 81003; 82040; 82140; 82270; 82375; 82728; 82805; 82962; 83605; 83615; 83735; 83880; 84100; 84478; 84484; 85025; 85379; 86140; 87077; 87186; 87635; 88108; 88312; 93005; 93306; 94640; 94660; 99291; C1725; C1729; C1769; J0456; J0696; J1650; J1815; J1940; J2060; J2185; J2704; J2765; J3010; J3480; J3490; J7042; J7050; J7060; J7070; P9047; U0003-CS